=== PATIENT | female | born 1960 | race Caucasian/White ===

== ENCOUNTER 2016-05-21 17:04 | Emergency (ER) | payer OTHER ==
[~2016-05-21] VITALS: Ht 162.6 cm; Wt 76.0 kg
[~2016-05-21 17:04] MED LIST: CYMB60CA PO; DILA8TAB4 PO; FENT75DI T-DERMAL; FURO1TAB62 PO; NEUR800T PO; NEXI20CA PO; PRAV20TA2 PO; TRAZ300T2 PO; [UNRECOGNIZED DRUG - CODE] IMPLANPUMP
[2016-05-21 17:14] VITALS: BP 171/105; PULSE 88; RESP 18; TEMP 97.7; O2SAT 100
[2016-05-21] MEDS ORDERED: ONDANSETRON HCL 4 MG/2 ML VIAL IVP ONE (17:15)
[2016-05-21] MEDS ORDERED: SODIUM CHLOR 0.9% 1000 ML INJ 1,000 ML IV SCH (17:15)
--- NOTE | 2016-05-21 17:21 | PD ---
HPI Chief Complaint: Abdominal Pain Time Seen by Provider: 17:10 Travel History International Travel<30 days: No Contact w/Intl Traveler<30days: No Traveled to known affect area: No History of Present Illness HPI 55yo F with PMH of chronic back pain on fentanyl pump for 7 years presents to the ED with c/o abdominal pain for 2 days. States the pain is left sided where her fentanyl pump is. She had her pump readjusted [address] Kyle Jasso from [place]. +NBNB vomiting. Denies any fever, chest pain, sob, diarrhea, or urinary complaints. PFSH Past Medical History Hx Anticoagulant Therapy: Yes (BABY ASA DAILY) Arthritis: Yes Asthma: No Blood Disorders: No Anxiety: Yes Depression: No Heart Rhythm Problems: Yes (PERICARDITIS 1989,TACHYCARDIA) Cancer: No Cardiovascular Problems: Yes (PERICARDITIS ) High Cholesterol: No Chemotherapy: No Chest Pain: No Congestive Heart Failure: No COPD: No Cerebrovascular Accident: No Diabetes: No Diminished Hearing: No Endocrine: No Gastrointestinal Disorders: Yes (GERD, ULCER HX) GERD: No Glaucoma: Yes Genitourinary: No Headaches: No Hepatitis: No Hiatal Hernia: No Heparin Induced Thrombocytopen: No Hypertension: No Immune Disorder: No Implanted Vascular Access Dvce: No Musculoskeletal: Yes (S/P TRAUMA--ARTHRITIS, BACK/NECK PAIN, AVN JOINTS) Neurologic: Yes (MIGRAINES (NERVE SEVERED ELECTIVELY)) Psychiatric: Yes (CLAUSTRAPHOBIA) Reproductive: No Respiratory: No Immunizations Current: Yes Migraines: Yes Thyroid Disease: No Ulcer: Yes ?: Not Menopausal: Yes : 0 Ovarian Cysts: Yes Past Surgical History Abdominal Surgery: Yes (APPY) AICD: No Appendectomy: Yes Body Medical Devices: SPINAL HARDWARE, PAIN PUMP Cholecystectomy: Yes Ear Surgery: No Endocrine Surgery: No Eye Surgery: No Genitourinary Surgery: No Gynecologic Surgery: Yes (HYSTERECTOMY) Hysterectomy: Yes Joint Replacement: Yes (HIP/KNEES) Neurologic Surgery: Yes (LUMBAR& CERVICAL FUSIONS (X2 EACH), LEFT OCCIP. NEVER CLIP) Oral Surgery: Yes Thoracic Surgery: Yes Tonsillectomy: Yes Other Surgery: Yes (TRAUMA REPAIRS 1978) Social History Alcohol Use: No Tobacco Use: No Substance Use: No Allergies-Medications (Allergen,Severity, Reaction): Coded Allergies: Kelly (Verified Allergy, Severe, ALLERGY TO MOBIC(MELOXICAM) = PALPITATIONS, 05/21/16) Meloxicam (Unverified Allergy, Severe, RASH, 05/21/16) Robaxin (Verified Allergy, Severe, Rash, 05/21/16) Soma (Verified Allergy, Mild, Rash, 05/21/16) Reported Meds & Prescriptions Reported Meds & Active Scripts Active Zofran Odt (Ondansetron Odt) 4 Mg Tab 4 Mg SL Q6HR PRN Flomax (Tamsulosin HCl) 0.4 Mg Cap 0.4 Mg PO HS Reported Fentanyl Citrate/R... 0.1-0.125-0.9 mg/50Ml-% (Fentanyl Citrate-Ropivacaine H) 1 Inj Inj 1 Units IMPLANPUMP 6X DAILY PRN PRN Fentanyl Patch 72 HR (Fentanyl) 75 Mcg/Hr Patch 75 Mcg T-DERMAL Q72H Remove old patch when new one placed. Nexium (Esomeprazole DR) 20 Mg Capdr 20 Mg PO DAILY Lasix (Furosemide) 20 Mg Tab 10 Mg PO BID PRN Neurontin (Gabapentin) 800 Mg Tab 800 Mg PO TID Pravastatin 20 Mg Tab 20 Mg PO DAILY Trazodone (Trazodone HCl) 300 Mg Tab 400 Mg PO HS Dilaudid (Hydromorphone HCl) 8 Mg Tab 8 Mg PO Q6H PRN Review of Systems Except as stated in HPI: all other systems reviewed are Neg Physical Exam Narrative GENERAL: 55yo F in mild distress. SKIN: Warm and dry. HEAD: Atraumatic. Normocephalic. EYES: Pupils equal and round. No scleral icterus. No injection or drainage. ENT: No nasal bleeding or discharge. Mucous membranes pink and moist. NECK: Trachea midline. No JVD. CARDIOVASCULAR: Regular rate and rhythm. No murmur appreciated. RESPIRATORY: No accessory muscle use. Clear to auscultation. Breath sounds equal bilaterally. GASTROINTESTINAL: Abdomen soft, mild ttp LLQ around fentanyl pump. Surgical scar is well healed with no signs of erythema, pus or infection. MUSCULOSKELETAL: No obvious deformities. No clubbing. No cyanosis. No edema. NEUROLOGICAL: Awake and alert. No obvious cranial nerve deficits. Motor grossly within normal limits. Normal speech. PSYCHIATRIC: Appropriate mood and affect; insight and judgment normal. Data Data Last Documented VS Vital Signs Date Time Temp Pulse Resp B/P Pulse Ox O2 Delivery O2 Flow Rate FiO2 05/21/16 22:00 90 16 149/93 98 Room Air 05/21/16 17:14 97.7 Orders Complete Blood Count With Diff (05/21/16 17:15) Comprehensive Metabolic Panel (05/21/16 17:15) Lipase (05/21/16 17:15) Prothrombin Time / Inr (Pt) (05/21/16 17:15) Act Partial Throm Time (Ptt) (05/21/16 17:15) Urinalysis - C+S If Indicated (05/21/16 17:15) Ct Abd/Pel W Iv Contrast(Rout) (05/21/16 17:15) Iv Access Insert/Monitor (05/21/16 17:15) Ecg Monitoring (05/21/16 17:15) Oximetry (05/21/16 17:15) Ondansetron Inj (Zofran Inj) (05/21/16 17:15) Sodium Chlor 0.9% 1000 Ml Inj (Ns 1000 M (05/21/16 17:15) Sodium Chloride 0.9% Flush (Ns Flush) (05/21/16 17:15) Hydromorphone Pf Inj (Dilaudid Pf Inj) (05/21/16 17:45) Potassium Chloride (Kcl) (05/21/16 18:45) Hydromorphone Pf Inj (Dilaudid Pf Inj) (05/21/16 19:00) Hydromorphone Pf Inj (Dilaudid Pf Inj) (05/21/16 20:00) Ondansetron Inj (Zofran Inj) (05/21/16 20:00) Tamsulosin (Flomax) (05/21/16 20:15) Iohexol 350 Inj (Omnipaque 350 Inj) (05/21/16 19:00) Labs Laboratory Tests Test 05/21/16 05/21/16 05/21/16 17:25 18:35 20:45 White Blood Count 10.1 TH/MM3 Red Blood Count 4.36 MIL/MM3 Hemoglobin 12.8 GM/DL Hematocrit 38.5 % Mean Corpuscular Volume 88.3 FL Mean Corpuscular Hemoglobin 29.3 PG Mean Corpuscular Hemoglobin 33.2 % Concent Red Cell Distribution Width 13.3 % Platelet Count 464 TH/MM3 Mean Platelet Volume 6.7 FL Neutrophils (%) (Auto) 65.9 % Lymphocytes (%) (Auto) 25.8 % Monocytes (%) (Auto) 7.1 % Eosinophils (%) (Auto) 0.7 % Basophils (%) (Auto) 0.5 % Neutrophils # (Auto) 6.6 TH/MM3 Lymphocytes # (Auto) 2.6 TH/MM3 Monocytes # (Auto) 0.7 TH/MM3 Eosinophils # (Auto) 0.1 TH/MM3 Basophils # (Auto) 0.1 TH/MM3 CBC Comment DIFF FINAL Differential Comment Sodium Level 142 MEQ/L Potassium Level 3.3 MEQ/L Chloride Level 106 MEQ/L Carbon Dioxide Level 24.0 MEQ/L Anion Gap 12 MEQ/L Blood Urea Nitrogen 14 MG/DL Creatinine 0.80 MG/DL Estimat Glomerular Filtration 74 ML/MIN Rate Random Glucose 130 MG/DL Calcium Level 9.1 MG/DL Total Bilirubin 0.3 MG/DL Aspartate Amino Transf 13 U/L (AST/SGOT) Alanine Aminotransferase 14 U/L (ALT/SGPT) Alkaline Phosphatase 95 U/L Total Protein 7.9 GM/DL Albumin 4.1 GM/DL Lipase 73 U/L Urine Collection Type CLEAN CATCH Urine Color YELLOW Urine Turbidity SLIGHT Urine pH 5.5 Urine Specific [place] 1.023 Urine Protein TRACE mg/dL Urine Glucose (UA) NEG mg/dL Urine Ketones 15 mg/dL Urine Occult Blood LARGE Urine Nitrite NEG Urine Bilirubin NEG Urine Leukocyte Esterase NEG Urine RBC 25-49 /hpf Urine WBC 0-2 /hpf Urine Squamous Epithelial 0-5 /hpf Cells Urine Mucus FEW /lpf Microscopic Urinalysis Comment CULT NOT INDICATED Prothrombin Time 10.9 SEC Prothromb Time International 1.0 RATIO Ratio Activated Partial 25.0 SEC Thromboplast Time MDM Medical Decision Making Medical Screen Exam Complete: Yes Emergency Medical Condition: Yes Differential Diagnosis Abscess vs. colitis vs. obstruction vs. nephrolithiasis vs. pyelonephritis vs. malingering Narrative Course 55yo F with chronic back pain here with abdominal pain radiating to left back. Associated with vomiting. Discussed with pain management physician Dr. Jasso [phone] who states that she will need more IV narcotic such as dilaudid since she has a high tolerance. Agreed with the CT scan. Pt given zofran and no longer nauseous. Pt gave herself a push of fentanyl and felt better. I reevaluated her and her pain is starting to come so dilaudid 1mg IV given. Pt states she can only give herself a dose of fentanyl every 3 hours. Labs reviewed, no leukocytosis. K: 3.3, replaced orally with 40mEq KCl. UA and CTa/ p pending. Will sign out to next team to follow up and disposition accordingly. Scripts Ondansetron Odt (Zofran Odt)4 Mg Tab4 Mg SL Q6HR PRN (Nausea/Vomiting) #10 TAB Ref 0 Prov:Payton Amor MD 05/21/16 Tamsulosin (Flomax)0.4 Mg Cap0.4 Mg PO HS #6 CAP Ref 0 Prov:Payton Amor MD 05/21/16 Dasia Kaplan DO May 21, 2016 17:21
[2016-05-21] MEDS: SODIUM CHLORIDE 0.9% FLUSH 5 ML FLUSH IVF PRN ×3 (17:29→20:29)
[2016-05-21 17:34] LABS: AUTOMATED NEUTROPHIL # 6.6 TH/MM3 (1.8-7.7); BASOPHIL # 0.1 TH/MM3 (0-0.2); BASOPHIL % 0.5 % (0.0-2.0); EOSINOPHIL # 0.1 TH/MM3 (0-0.4); EOSINOPHIL % 0.7 % (0.0-4.0); HEMATOCRIT 38.5 % (35.0-46.0); LYMPH % 25.8 % (9.0-44.0); LYMPHOCYTE # 2.6 TH/MM3 (1.0-4.8); MEAN CELL VOLUME 88.3 FL (80.0-100.0); MEAN CORPUSCULAR HEMOGLOBIN 29.3 PG (27.0-34.0); MEAN CORPUSCULAR HGB CONC 33.2 % (32.0-36.0); MONO % 7.1 % (0.0-8.0); NEUT % 65.9 % (16.0-70.0); PLATELET COUNT 464 TH/MM3 (150-450); RED BLOOD COUNT 4.36 MIL/MM3 (4.00-5.30); RED CELL DISTRIBUTION WIDTH 13.3 % (11.6-17.2); WHITE BLOOD COUNT 10.1 TH/MM3 (4.0-11.0)
[2016-05-21 17:43] LABS: HEMO FLAGS DIFF FINAL
[2016-05-21 17:44] LABS: CHLORIDE 106 MEQ/L (98-107); POTASSIUM 3.3 MEQ/L (3.5-5.1); SODIUM (NA) 142 MEQ/L (136-145)
[2016-05-21] MEDS ORDERED: HYDROmorphone HCL PF 1 MG/ML VIAL IV PUSH ONE ×3 (17:45→20:00)
[2016-05-21 17:48] LABS: ANION GAP 12 MEQ/L (5-15); BLOOD UREA NITROGEN 14 MG/DL (7-18)
[2016-05-21 17:51] LABS: ALT (GPT) 14 U/L (10-53); AST (GOT) 13 U/L (15-37); GLOMERULAR FILTRATION RATE 74 ML/MIN (>89)
[2016-05-21 17:53] LABS: TOTAL BILIRUBIN ADULT 0.3 MG/DL (0.2-1.0)
[2016-05-21 17:54] LABS: ALKALINE PHOSPHATASE 95 U/L (45-117)
[2016-05-21 17:57] VITALS: O2SAT 96
[2016-05-21] MEDS ORDERED: POTASSIUM CHLORIDE 20 MEQ CONTROLLED RELEASE TAB PO ONE (18:45)
[2016-05-21 18:56] LABS: BLOOD, URINE LARGE (NEG); GLUCOSE,URINE NEG (NEG); KETONE, URINE 15 mg/dL (NEG); NITRITE,URINE NEG (NEG); PH, URINE 5.5 (5.0-8.5)
[2016-05-21] MEDS ORDERED: IOHEXOL 350 MG/ML 10 ML VIAL (for RAD DIAG) IV ONE (19:00)
[2016-05-21 19:11] LABS: METHOD OF COLLECTION CLEAN CATCH; URINE COLOR YELLOW (YELLW/STRAW)
[2016-05-21 19:12] LABS: MUCUS URINE FEW /lpf (OCC); SQUAMOUS EPITHELIAL CELL URINE 0-5 /hpf (0-5); WBC, URINE 0-2 /hpf (0-5)
[2016-05-21 19:13] LABS: COMMENT (UR) CULT NOT INDICATED; CULTURE IF INDICATED CULT NOT INDICATED
[2016-05-21 19:20] VITALS: BP 170/101; PULSE 95; RESP 18; O2SAT 99
--- NOTE | 2016-05-21 19:26 | PD ---
Physical Exam Date Seen by Provider: May 21, 2016 Time Seen by Provider: 19:24 Narrative Accepted in transfer of care from Dr. Kaplan GENERAL: SKIN: Warm and dry. HEAD: Normocephalic. EYES: No scleral icterus. No injection or drainage. NECK: Supple, trachea midline. No JVD or lymphadenopathy. CARDIOVASCULAR: Regular rate and rhythm without murmurs, gallops, or rubs. RESPIRATORY: Breath sounds equal bilaterally. No accessory muscle use. GASTROINTESTINAL: Abdomen soft, non-tender, nondistended. MUSCULOSKELETAL: No cyanosis, or edema. BACK: Nontender without obvious deformity. left CVA tenderness. Data Data Last Documented VS Vital Signs Date Time Temp Pulse Resp B/P Pulse Ox O2 Delivery O2 Flow Rate FiO2 05/21/16 22:00 90 16 149/93 98 Room Air 05/21/16 17:14 97.7 Orders Complete Blood Count With Diff (05/21/16 17:15) Comprehensive Metabolic Panel (05/21/16 17:15) Lipase (05/21/16 17:15) Prothrombin Time / Inr (Pt) (05/21/16 17:15) Act Partial Throm Time (Ptt) (05/21/16 17:15) Urinalysis - C+S If Indicated (05/21/16 17:15) Ct Abd/Pel W Iv Contrast(Rout) (05/21/16 17:15) Iv Access Insert/Monitor (05/21/16 17:15) Ecg Monitoring (05/21/16 17:15) Oximetry (05/21/16 17:15) Ondansetron Inj (Zofran Inj) (05/21/16 17:15) Sodium Chlor 0.9% 1000 Ml Inj (Ns 1000 M (05/21/16 17:15) Sodium Chloride 0.9% Flush (Ns Flush) (05/21/16 17:15) Hydromorphone Pf Inj (Dilaudid Pf Inj) (05/21/16 17:45) Potassium Chloride (Kcl) (05/21/16 18:45) Hydromorphone Pf Inj (Dilaudid Pf Inj) (05/21/16 19:00) Hydromorphone Pf Inj (Dilaudid Pf Inj) (05/21/16 20:00) Ondansetron Inj (Zofran Inj) (05/21/16 20:00) Tamsulosin (Flomax) (05/21/16 20:15) Iohexol 350 Inj (Omnipaque 350 Inj) (05/21/16 19:00) Labs Laboratory Tests Test 05/21/16 05/21/16 05/21/16 17:25 18:35 20:45 White Blood Count 10.1 TH/MM3 Red Blood Count 4.36 MIL/MM3 Hemoglobin 12.8 GM/DL Hematocrit 38.5 % Mean Corpuscular Volume 88.3 FL Mean Corpuscular Hemoglobin 29.3 PG Mean Corpuscular Hemoglobin 33.2 % Concent Red Cell Distribution Width 13.3 % Platelet Count 464 TH/MM3 Mean Platelet Volume 6.7 FL Neutrophils (%) (Auto) 65.9 % Lymphocytes (%) (Auto) 25.8 % Monocytes (%) (Auto) 7.1 % Eosinophils (%) (Auto) 0.7 % Basophils (%) (Auto) 0.5 % Neutrophils # (Auto) 6.6 TH/MM3 Lymphocytes # (Auto) 2.6 TH/MM3 Monocytes # (Auto) 0.7 TH/MM3 Eosinophils # (Auto) 0.1 TH/MM3 Basophils # (Auto) 0.1 TH/MM3 CBC Comment DIFF FINAL Differential Comment Sodium Level 142 MEQ/L Potassium Level 3.3 MEQ/L Chloride Level 106 MEQ/L Carbon Dioxide Level 24.0 MEQ/L Anion Gap 12 MEQ/L Blood Urea Nitrogen 14 MG/DL Creatinine 0.80 MG/DL Estimat Glomerular Filtration 74 ML/MIN Rate Random Glucose 130 MG/DL Calcium Level 9.1 MG/DL Total Bilirubin 0.3 MG/DL Aspartate Amino Transf 13 U/L (AST/SGOT) Alanine Aminotransferase 14 U/L (ALT/SGPT) Alkaline Phosphatase 95 U/L Total Protein 7.9 GM/DL Albumin 4.1 GM/DL Lipase 73 U/L Urine Collection Type CLEAN CATCH Urine Color YELLOW Urine Turbidity SLIGHT Urine pH 5.5 Urine Specific [place] 1.023 Urine Protein TRACE mg/dL Urine Glucose (UA) NEG mg/dL Urine Ketones 15 mg/dL Urine Occult Blood LARGE Urine Nitrite NEG Urine Bilirubin NEG Urine Leukocyte Esterase NEG Urine RBC 25-49 /hpf Urine WBC 0-2 /hpf Urine Squamous Epithelial 0-5 /hpf Cells Urine Mucus FEW /lpf Microscopic Urinalysis Comment CULT NOT INDICATED Prothrombin Time 10.9 SEC Prothromb Time International 1.0 RATIO Ratio Activated Partial 25.0 SEC Thromboplast Time [facility] Medical Record Reviewed: Yes Supervised Visit with SCOTT: No Interpretation(s) CBC with automated differential values grossly in normal range Metabolic panel remarkable for mild hypokalemia that has been replaced with oral potassium reportedly Urinalysis shows blood but no evidence of bacteria and culture is not indicated Differential Diagnosis Accepted in transfer of care from Dr. Kaplan; please refer to her dictation Narrative Course Accepted in transfer of care from Dr. Kaplan for follow-up of pending CT and patient disposition; patient's managing surgeon Dr. Jasso from [place] has been consulted by Dr. Kaplan at [phone]. @ 19:25 patient has returned from CT @10 PM patient feels well pain has essentially resolved and patient is desirous of being discharged to home with noted diagnosis of ureterolithiasis with mild hydronephrosis and hydroureter with obstructive uropathy with her condition follow-up with urologist. No evidence of infection at this time. No antibiotic indicated at this time. Patient will be encouraged to strain urine and return to the emergency for free concerns or change in condition. Diagnosis Primary Impression: Ureterolithiasis Additional Impression: Obstructive uropathy Referrals: Urologist call for appointment Patient Instructions: Narcotic given in the ED, General Instructions Additional Instruction: Increase fluid hydration Follow-up with her primary care physician Follow-up with your surgeon Follow-up with urologist Strain urine Continue current pain medication as presently prescribed Take medication as prescribed as needed for nausea vomiting Take new medication to help with passage of stone Return to the emergency for any concerns or change in condition Take acetaminophen/Tylenol as often as every 4 hours as needed for minor pain or for fever 100.4 use Fahrenheit or greater Med/Other Pt SpecificInfo: Prescription(s) given Scripts Ondansetron Odt (Zofran Odt)4 Mg Tab4 Mg SL Q6HR PRN (Nausea/Vomiting) #10 TAB Ref 0 Prov:Payton Amor MD 05/21/16 Tamsulosin (Flomax)0.4 Mg Cap0.4 Mg PO HS #6 CAP Ref 0 Prov:Payton Amor MD 05/21/16 Disposition: DISCHARGE HOME Condition: Stable Payton Amor MD May 21, 2016 19:26 Payton Amor MD May 21, 2016 19:26
--- NOTE | 2016-05-21 19:54 | RADHPO ---
EXAM DATE/TIME: 05/21/2016 19:00 [facility] COMPARISON: No previous studies available for comparison. INDICATIONS : Left lower quadrant pain for two days. IV CONTRAST: 70 cc Omnipaque 350 (iohexol) IV ORAL CONTRAST: No oral contrast ingested. RADIATION DOSE: 13.23 CTDIvol (mGy) MEDICAL HISTORY : Pancreatitis. Gastroesophageal reflux disease. SURGICAL HISTORY : Appendectomy. Hysterectomy.Fusion, lumbar.Fentonyl pump. ENCOUNTER: Initial ACUITY: 2 days PAIN SCALE: 8/10 LOCATION: Left lower quadrant TECHNIQUE: Volumetric scanning of the abdomen and pelvis was performed. Using automated exposure control and ad justment of the mA and/or kV according to patient size, radiation dose was kept as low as reasonably achievable to obtain optimal diagnostic quality images. FINDINGS: Comparison is July 2015. Since prior exam patient has developed moderate left-sided hydronephrosis. There is extensive streak artifact in the abdomen from implanted infusion pump device in the left low er quadrant and from previous lumbar spine surgery and bilateral hip arthroplasties. Findings likely relate to left-sided obstructive uropathy. There is an approximately 3 mm calcification in the left h emipelvis which could be in the distal left ureter. This area is difficult to visualize due to hip ar throplasties. There are multiple additional nonobstructing calculi in both kidneys. No evidence for o bstructive uropathy on the right. Lung bases are clear. No acute findings in the liver, spleen, adrenals or pancreas. No calcified gall stones. No bowel obstruction. No free air or free fluid. CONCLUSION: 1. Left-sided obstructive uropathy. Calculus is not definitively visualized but there may be a 3 mm c alculus near the left UVJ. Multiple additional bilateral nonobstructing renal calculi present ranging in size from about 1-4 mm. Marbin Aviles MD on May 21, 2016 at 19:46 Board Certified Radiologist. This report was verified electronically.
[2016-05-21] MEDS ORDERED: ONDANSETRON HCL 4 MG/2 ML VIAL IV PUSH ONE (20:00)
[2016-05-21] MEDS ORDERED: TAMSULOSIN HCL 0.4 MG CAP PO ONE (20:15)
[2016-05-21 20:25] VITALS: BP 163/90; PULSE 85; RESP 18; O2SAT 100
[2016-05-21 21:22] LABS: PROTHROMBIN TIME - PATIENT 10.9 SEC (9.8-11.6)
[2016-05-21 22:00] VITALS: BP 149/93; PULSE 90; RESP 16; O2SAT 98
[2016-05-21] MEDS ORDERED: TAMS5CAP PO (22:01)
[2016-05-21] MEDS ORDERED: ZOFR4TAB3 SL (22:01)
== END 2016-05-21 22:20 | disposition home or self-care (01) ==
LOC: PHED 17:04
DX: N13.2 Hydronephrosis with renal and ureteral calculous obstruction (principal); N13.4 Hydroureter; N13.9 Obstructive and reflux uropathy, unspecified; Z79.01 Long term (current) use of anticoagulants; K21.9 Gastro-esophageal reflux disease without esophagitis
CPT/HCPCS: 74177; 80053; 81001; 83690; 85025; 85610; 85730; 96361; 96374; 96375; 99284; J1170; J2405; J7030; Q9967

== ENCOUNTER 2016-10-07 09:54 | Emergency (ER) | payer OTHER ==
[~2016-10-07] VITALS: Ht 160 cm; Wt 74.0 kg
[~2016-10-07 09:54] MED LIST changes: -CYMB60CA PO; +TAMS5CAP PO; +ZOFR4TAB3 SL
[2016-10-07 09:56] VITALS: BP 128/82; PULSE 92; RESP 15; TEMP 98.3; O2SAT 96
[2016-10-07] MEDS ORDERED: [UNRECOGNIZED DRUG - CODE] (10:10)
--- NOTE | 2016-10-07 10:37 | PD ---
HPI Chief Complaint: Hip Injury Time Seen by Provider: 10:14 Travel History International Travel<30 days: No Contact w/Intl Traveler<30days: No Traveled to known affect area: No History of Present Illness HPI 56-year-old female complains of right hip pain. Patient stated that she fell yesterday on the right hip. Patient status post right hip replacement in the past. Patient states the pain is sharp pain localized to right hip. Patient states that she has clicking noise on movement of the right hip since the fall. Patient denies any other injury. On a scale of 1-10 on a scale of 1-10 the pain is an 8. PFSH Past Medical History Hx Anticoagulant Therapy: Yes (BABY ASA DAILY) Arthritis: Yes Asthma: No Blood Disorders: No Anxiety: Yes Depression: No Heart Rhythm Problems: Yes (PERICARDITIS 1989,TACHYCARDIA) Cancer: No Cardiovascular Problems: Yes (PERICARDITIS ) High Cholesterol: Yes Chemotherapy: No Chest Pain: No Congestive Heart Failure: No COPD: No Cerebrovascular Accident: No Diabetes: No Diminished Hearing: No Endocrine: No Gastrointestinal Disorders: Yes (GERD, ULCER HX) GERD: Yes Glaucoma: Yes Genitourinary: No Headaches: No Hepatitis: No Hiatal Hernia: No Heparin Induced Thrombocytopen: No Hypertension: No Immune Disorder: No Implanted Vascular Access Dvce: No Medical other: Yes (FIBROMYALGIA) Musculoskeletal: Yes (S/P TRAUMA--ARTHRITIS, BACK/NECK PAIN, AVN JOINTS) Neurologic: Yes (MIGRAINES (NERVE SEVERED ELECTIVELY)) Psychiatric: Yes (CLAUSTRAPHOBIA) Reproductive: No Respiratory: No Immunizations Current: Yes Migraines: Yes Thyroid Disease: No Ulcer: Yes Influenza Vaccination: Yes ?: Not 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 NEVER CLIP) Oral Surgery: Yes Thoracic Surgery: Yes Tonsillectomy: Yes Other Surgery: Yes (TRAUMA REPAIRS 1978) Family History Family Myocardial Infarction: Yes (father ist at age 30) Social History Alcohol Use: No Tobacco Use: No Substance Use: No Allergies-Medications (Allergen,Severity, Reaction): Coded Allergies: Feldene (Verified Allergy, Severe, ALLERGY TO MOBIC(MELOXICAM) = PALPITATIONS, 10/07/16) Meloxicam (Unverified Allergy, Severe, RASH, 10/07/16) Robaxin (Verified Allergy, Severe, Rash, 10/07/16) Soma (Verified Allergy, Mild, Rash, 10/07/16) Reported Meds & Prescriptions Reported Meds & Active Scripts Active Zofran Odt (Ondansetron Odt) 4 Mg Tab 4 Mg SL Q6HR PRN Reported Kcmdmcis-Rnvby-Mq 20 Mcg-0.25% (Fentanyl/Bupivacaine/Ns/Pf) 250 Ml Plast..bag 0 Nexium (Esomeprazole DR) 20 Mg Capdr 20 Mg PO DAILY Lasix (Furosemide) 20 Mg Tab 10 Mg PO BID PRN Neurontin (Gabapentin) 800 Mg Tab 800 Mg PO TID Pravastatin 20 Mg Tab 40 Mg PO HS Trazodone (Trazodone HCl) 300 Mg Tab 400 Mg PO HS Dilaudid (Hydromorphone HCl) 8 Mg Tab 8 Mg PO Q6H PRN Review of Systems General / Constitutional: No: Fever Eyes: No: Visual changes HENT: No: Headaches Cardiovascular: No: Chest Pain or Discomfort Respiratory: No: Shortness of Breath Gastrointestinal: No: Abdominal Pain Genitourinary: No: Dysuria Musculoskeletal: Positive: Pain Skin: No Rash Neurologic: No: Weakness Psychiatric: No: Depression Endocrine: No: Polydipsia Hematologic/Lymphatic: No: Easy Bruising Physical Exam Narrative GENERAL: Well-nourished, well-developed patient. SKIN: Focused skin assessment warm/dry. HEAD: Normocephalic. EYES: No scleral icterus. No injection or drainage. NECK: Supple, trachea midline. No JVD or lymphadenopathy. CARDIOVASCULAR: Regular rate and rhythm without murmurs, gallops, or rubs. RESPIRATORY: Breath sounds equal bilaterally. No accessory muscle use. GASTROINTESTINAL: Abdomen soft, non-tender, nondistended. MUSCULOSKELETAL: No cyanosis, or edema. BACK: Nontender without obvious deformity. No CVA tenderness. Patient has moderate tenderness on palpation lateral posterior aspect the right hip joint. Full range of motion of the right hip. Sensorimotor function distally intact. Data Data Last Documented VS Vital Signs Date Time Temp Pulse Resp B/P Pulse Ox O2 Delivery O2 Flow Rate FiO2 10/07/16 09:56 98.3 92 15 128/82 96 Orders Hip, Uni(Ap&Lat) W Ap Pelvis (10/07/16 ) MDM Medical Decision Making Medical Screen Exam Complete: Yes Emergency Medical Condition: Yes Differential Diagnosis Differential diagnosis including contusion, fracture, dislocation. Narrative Course 56-year-old female with right hip pain, status post fall. Diagnosis Primary Impression: Contusion of right hip Qualified Code: S70.01XA - Contusion of right hip, initial encounter Patient Instructions: General Instructions Additional Instructions: Continue with pain medication. Follow-up with orthopedist if persistent problem. Return if worse. Med/Other Pt SpecificInfo: No Change to Meds Disposition: 01 DISCHARGE HOME Condition: Stable Mika Caro MD Oct 07, 2016 10:37
--- NOTE | 2016-10-07 10:45 | RADRPT ---
EXAM DATE/TIME: 10/07/2016 10:27 [facility] COMPARISON: CT ABDOMEN & PELVIS W CONTRAST, May 21, 2016, 19:00. INDICATIONS : Fell yesterday, right hip area pain MEDICAL HISTORY : None. SURGICAL HISTORY : Spinal fusions, bilateral hips, knees ENCOUNTER: Initial ACUITY: 2 days PAIN SCORE: 8/10 LOCATION: Right hip FINDINGS: There are bilateral total hip arthroplasties. Posterior lalita and transpedicular screw fixation of the lower lumbar spine noted. No fractures are seen. A generator device overlies the left iliac crest. CONCLUSION: No acute disease. Yemi Sheriff MD on October 07, 2016 at 10:42 Board Certified Radiologist. This report was verified electronically.
== END 2016-10-07 10:51 | disposition home or self-care (01) ==
LOC: PHED 09:54
DX: S70.01XA Contusion of right hip, initial encounter (principal); I31.9 Disease of pericardium, unspecified; F41.9 Anxiety disorder, unspecified; Z79.82 Long term (current) use of aspirin; Z96.641 Presence of right artificial hip joint; W18.30XA Fall on same level, unspecified, initial encounter; Y93.9 Activity, unspecified; Y92.9 Unspecified place or not applicable; Y99.9 Unspecified external cause status
CPT/HCPCS: 73502; 99283

== ENCOUNTER 2017-04-04 21:04 | Emergency (ER) | payer OTHER ==
[~2017-04-04] VITALS: Ht 162.6 cm; Wt 69.6 kg
[~2017-04-04 21:04] MED LIST changes: -FENT75DI T-DERMAL; -TAMS5CAP PO; +[UNRECOGNIZED DRUG - CODE]; -[UNRECOGNIZED DRUG - CODE] IMPLANPUMP
[2017-04-04 21:14] VITALS: BP 107/58; PULSE 95; RESP 16; TEMP 98.5; O2SAT 95
[2017-04-04] MEDS ORDERED: SODIUM CHLOR 0.9% 1000 ML INJ 1,000 ML IV ONE (22:19)
--- NOTE | 2017-04-04 22:28 | PD ---
HPI Chief Complaint: Headache Time Seen by Provider: 22:12 Travel History International Travel<30 days: No Contact w/Intl Traveler<30days: No History of Present Illness HPI Patient is a 56-year-old female who presents to emergency room with complaints of migraine headache. Patient reports that she has history of migraine headaches in the past, reports that she has taken fiorcets in the past for migraine headaches but does not have a script for this anymore. Patient reports that over the past few days, she has had a migraine headache. Patient reports that the headache goes from the back of her neck to the front of her head, reports that her migraine is associated with photophobia with nausea and vomiting. Patient reports that her symptoms are similar to her previous migraines in the past. Patient denies any fever or chills with symptoms. Patient denies thunderclap headache. Patient denies that this is the worst headache of her life. Patient has tried taking [id number] medications for relief of symptoms, patient reports that nothing has helped with her symptoms. Patient denies any fever or chills, no other complaints at this time. PFSH Past Medical History Hx Anticoagulant Therapy: Yes (BABY ASA DAILY) Arthritis: Yes Asthma: No Blood Disorders: No Anxiety: Yes Depression: No Heart Rhythm Problems: Yes (PERICARDITIS 1989,TACHYCARDIA) Cancer: No Cardiovascular Problems: Yes (PERICARDITIS ) High Cholesterol: Yes Chemotherapy: No Chest Pain: No Congestive Heart Failure: No COPD: No Cerebrovascular Accident: No Diabetes: No Diminished Hearing: No Endocrine: No Gastrointestinal Disorders: Yes (GERD, ULCER HX) GERD: Yes Glaucoma: Yes Genitourinary: No Headaches: No Hepatitis: No Hiatal Hernia: No Heparin Induced Thrombocytopen: No Hypertension: No Immune Disorder: No Implanted Vascular Access Dvce: No Musculoskeletal: Yes (S/P TRAUMA--ARTHRITIS, BACK/NECK PAIN, AVN JOINTS) Neurologic: Yes (MIGRAINES (NERVE SEVERED ELECTIVELY)) Psychiatric: Yes (CLAUSTRAPHOBIA) Reproductive: No Respiratory: No Immunizations Current: Yes Migraines: Yes Thyroid Disease: No Ulcer: Yes Menopausal: Yes : 0 Ovarian Cysts: Yes Past Surgical History Abdominal Surgery: Yes (APPY) AICD: No Appendectomy: Yes Body Medical Devices: SPINAL HARDWARE, PAIN PUMP Cholecystectomy: Yes Ear Surgery: No Endocrine Surgery: No Eye Surgery: No Genitourinary Surgery: No Gynecologic Surgery: Yes (HYSTERECTOMY) Hysterectomy: Yes Joint Replacement: Yes (HIP/KNEES) Neurologic Surgery: Yes (LUMBAR& CERVICAL FUSIONS (X2 EACH), LEFT OCCIP. NEVER CLIP) Oral Surgery: Yes Thoracic Surgery: Yes Tonsillectomy: Yes Other Surgery: Yes (TRAUMA REPAIRS 1978) Social History Alcohol Use: No Tobacco Use: No Substance Use: No Allergies-Medications (Allergen,Severity, Reaction): Coded Allergies: meloxicam (Unverified Allergy, Severe, RASH, 04/04/17) methocarbamol (Unverified Allergy, Severe, Rash, 04/04/17) piroxicam (Unverified Allergy, Severe, ALLERGY TO MOBIC(MELOXICAM) = PALPITATIONS, 04/04/17) carisoprodol (Unverified Allergy, Mild, Rash, 04/04/17) Reported Meds & Prescriptions Reported Meds & Active Scripts Active Zofran Odt (Ondansetron Odt) 4 Mg Tab 4 Mg SL Q6HR PRN Reported Nexium (Esomeprazole DR) 20 Mg Capdr 20 Mg PO DAILY Lasix (Furosemide) 20 Mg Tab 10 Mg PO BID PRN Neurontin (Gabapentin) 800 Mg Tab 800 Mg PO TID Pravastatin 20 Mg Tab 40 Mg PO HS Trazodone (Trazodone HCl) 300 Mg Tab 400 Mg PO HS Dilaudid (Hydromorphone HCl) 8 Mg Tab 8 Mg PO Q6H PRN Review of Systems General / Constitutional: No: Fever, Chills Eyes: Positive: Photophobia, No: Visual changes HENT: Positive: Headaches Cardiovascular: No: Chest Pain or Discomfort Respiratory: No: Shortness of Breath Gastrointestinal: Positive: Nausea, Vomiting, No: Abdominal Pain Genitourinary: No: Dysuria Musculoskeletal: No: Pain Skin: No Rash Neurologic: Positive: Headache, No: Weakness Psychiatric: No: Depression Endocrine: No: Polydipsia Hematologic/Lymphatic: No: Easy Bruising Physical Exam Narrative GENERAL: Moderate distress SKIN: Focused skin assessment warm/dry. HEAD: Atraumatic. Normocephalic. EYES: Pupils equal and round. No scleral icterus. No injection or drainage. ENT: No nasal bleeding or discharge. Mucous membranes pink and moist. NECK: Trachea midline. No JVD. No meningismus, negative Kernig and Babinski sign CARDIOVASCULAR: Regular rate and rhythm. No murmur appreciated. RESPIRATORY: No accessory muscle use. Clear to auscultation. Breath sounds equal bilaterally. GASTROINTESTINAL: Abdomen soft, non-tender, nondistended. Hepatic and splenic margins not palpable. MUSCULOSKELETAL: No obvious deformities. No clubbing. No cyanosis. No edema. NEUROLOGICAL: Awake and alert. No obvious cranial nerve deficits. Motor grossly within normal limits. Normal speech. CN 2- 12 grossly intact with no neurological deficits. PSYCHIATRIC: Appropriate mood and affect; insight and judgment normal. Data Data Last Documented VS Vital Signs Date Time Temp Pulse Resp B/P (MAP) Pulse Ox O2 Delivery O2 Flow Rate FiO2 04/04/17 23:38 90 18 129/80 (96) 96 Room Air 04/04/17 21:14 98.5 Orders Orders Complete Blood Count With Diff (04/04/17 22:19) Basic Metabolic Panel (Bmp) (04/04/17 22:19) Ecg Monitoring (04/04/17 22:19) Iv Access Insert/Monitor (04/04/17 22:19) Oximetry (04/04/17 22:19) Sodium Chloride 0.9% Flush (Ns Flush) (04/04/17 22:30) Metoclopramide Inj (Reglan Inj) (04/04/17 22:30) Sodium Chlor 0.9% 1000 Ml Inj (Ns 1000 M (04/04/17 22:19) Dexamethasone Inj (Decadron Inj) (04/04/17 22:30) Diphenhydramine Inj (Benadryl Inj) (04/04/17 22:30) Ketorolac Inj (Toradol Inj) (04/04/17 22:30) Labs Laboratory Tests Test 04/04/17 23:00 White Blood Count 6.9 TH/MM3 Red Blood Count 4.14 MIL/MM3 Hemoglobin 11.8 GM/DL Hematocrit 35.9 % Mean Corpuscular Volume 86.6 FL Mean Corpuscular Hemoglobin 28.4 PG Mean Corpuscular Hemoglobin Concent 32.8 % Red Cell Distribution Width 12.6 % Platelet Count 359 TH/MM3 Mean Platelet Volume 6.5 FL Neutrophils (%) (Auto) 67.8 % Lymphocytes (%) (Auto) 23.4 % Monocytes (%) (Auto) 8.3 % Eosinophils (%) (Auto) 0.2 % Basophils (%) (Auto) 0.3 % Neutrophils # (Auto) 4.7 TH/MM3 Lymphocytes # (Auto) 1.6 TH/MM3 Monocytes # (Auto) 0.6 TH/MM3 Eosinophils # (Auto) 0.0 TH/MM3 Basophils # (Auto) 0.0 TH/MM3 CBC Comment DIFF FINAL Differential Comment Blood Urea Nitrogen 12 MG/DL Creatinine 0.54 MG/DL Random Glucose 120 MG/DL Calcium Level 9.1 MG/DL Sodium Level 138 MEQ/L Potassium Level 4.0 MEQ/L Chloride Level 102 MEQ/L Carbon Dioxide Level 29.9 MEQ/L Anion Gap 6 MEQ/L Estimat Glomerular Filtration Rate 116 ML/MIN MDM Medical Decision Making Medical Screen Exam Complete: Yes Emergency Medical Condition: Yes Medical Record Reviewed: Yes Interpretation(s) Vital Signs Date Time Temp Pulse Resp B/P (MAP) Pulse Ox O2 Delivery O2 Flow Rate FiO2 04/04/17 21:14 98.5 95 16 107/58 (74) 95 Differential Diagnosis migraine headache, cephalgia Narrative Course Patient is a 56 year old female who presents to ER with complaints of typical migraine headache. Symptoms have been ongoing for the past few days. Reports that she has run out of her fiorcet which she usually takes for her migraine headaches. Reports photophobia with nausea and vomiting with her symptoms. Overall, patient has a benign physical exam with no neurological deficits. Patient with no meningismus signs, negative Kernig's or Babinski sign During the course of the patients emergency department visit, the patients history, examination, and differential diagnosis were reviewed with the patient. The patient was placed on a db2 systems programmer with oximetry and frequent blood pressure monitoring. The patient had an IV access obtained and blood work sent for analysis. The patient was initially provided IV fluids, IV dexamethasone, IV reglan as well as IV Benadryl The patients laboratory studies were reviewed and remarkable for: CBC & BMP Diagram 04/04/17 23:00 Calcium Level 9.1 Patient reevaluated, patient with complete resolution of symptoms at this time. Patient does have a neurologist that she follows up with, she will follow-up with her neurologist for her migraine headaches. Signs and symptoms of when to return to ER was reviewed with patient in detail. She will return to ER as needed. Diagnosis Primary Impression: Migraine Qualified Codes: G43.909 - Migraine, unspecified, not intractable, without status migrainosus Patient Instructions: General Instructions Additional Instructions: Please follow up with your neurologist in 1 week Please follow up with your primary care doctor in 2-3 days Return to the ER if symptoms worsen or progress Return to the ER as needed Disposition: 01 DISCHARGE HOME Condition: Stable Maxine Patricia DO Apr 04, 2017 22:28
[2017-04-04] MEDS ORDERED: METOCLOPRAMIDE HCL 10 MG/2 ML VIAL IVP ONE (22:30)
[2017-04-04] MEDS ORDERED: diphenhydrAMINE HCL 50 MG/ML VIAL IV PUSH ONE (22:30)
[2017-04-04] MEDS ORDERED: SODIUM CHLORIDE 0.9% FLUSH 10 ML FLUSH IVF PRN (22:30)
[2017-04-04] MEDS ORDERED: KETOROLAC TROMETHAMINE 30 MG/ML (IVP) VIAL IV PUSH ONE (22:30)
[2017-04-04] MEDS ORDERED: DEXAMETHASONE SOD PHOS 20 MG/5 ML VIAL IV PUSH ONE (22:30)
[2017-04-04 22:51] VITALS: RESP 18; O2SAT 96
[2017-04-04 23:14] LABS: AUTOMATED NEUTROPHIL # 4.7 TH/MM3 (1.8-7.7); BASOPHIL % 0.3 % (0.0-2.0); EOSINOPHIL % 0.2 % (0.0-4.0); HEMATOCRIT 35.9 % (35.0-46.0); HEMOGLOBIN 11.8 GM/DL (11.6-15.3); LYMPH % 23.4 % (9.0-44.0); LYMPHOCYTE # 1.6 TH/MM3 (1.0-4.8); MEAN CELL VOLUME 86.6 FL (80.0-100.0); MEAN CORPUSCULAR HEMOGLOBIN 28.4 PG (27.0-34.0); MEAN CORPUSCULAR HGB CONC 32.8 % (32.0-36.0); MEAN PLATELET VOLUME 6.5 FL (7.0-11.0); MONO % 8.3 % (0.0-8.0); MONOCYTE # 0.6 TH/MM3 (0-0.9); NEUT % 67.8 % (16.0-70.0); PLATELET COUNT 359 TH/MM3 (150-450); RED BLOOD COUNT 4.14 MIL/MM3 (4.00-5.30); RED CELL DISTRIBUTION WIDTH 12.6 % (11.6-17.2); WHITE BLOOD COUNT 6.9 TH/MM3 (4.0-11.0)
[2017-04-04 23:24] LABS: CALCIUM 9.1 MG/DL (8.5-10.1)
[2017-04-04 23:25] LABS: BICARBONATE 29.9 MEQ/L (21.0-32.0)
[2017-04-04 23:28] LABS: CREATININE 0.54 MG/DL (0.50-1.00)
[2017-04-04 23:38] VITALS: BP 129/80; PULSE 90; RESP 18; O2SAT 96
== END 2017-04-05 00:06 | disposition home or self-care (01) ==
LOC: PHED 21:04
DX: G43.909 Migraine, unspecified, not intractable, without status migrainosus (principal); R11.2 Nausea with vomiting, unspecified; M19.90 Unspecified osteoarthritis, unspecified site; F41.9 Anxiety disorder, unspecified; E78.00 Pure hypercholesterolemia, unspecified; K21.9 Gastro-esophageal reflux disease without esophagitis; H40.9 Unspecified glaucoma
CPT/HCPCS: 80048; 85025; 96361; 96374; 96375; 99284; J1100; J1200; J1885; J2765; J7030

== ENCOUNTER 2017-04-27 01:31 | Emergency (ER) | payer OTHER ==
[~2017-04-27] VITALS: Ht 160 cm; Wt 69.9 kg
[~2017-04-27 01:31] MED LIST changes: -[UNRECOGNIZED DRUG - CODE]
[2017-04-27 01:32] VITALS: BP 121/65; PULSE 133; RESP 20; TEMP 97.3; O2SAT 97
[2017-04-27] MEDS ORDERED: PCA PUMP (01:57)
--- NOTE | 2017-04-27 02:26 | PD ---
HPI Chief Complaint: Pain: Acute or Chronic Time Seen by Provider: 02:07 Travel History International Travel<30 days: No Contact w/Intl Traveler<30days: No Traveled to known affect area: No History of Present Illness HPI The patient is a 56-year-old female that has a history of chronic back pain. She takes fentanyl by way of an intra incisional pump that delivers the fentanyl to the lumbar spine. She has an old incision on that area. Her pain management physician recently increased the amount of fentanyl. There is a 33 hour lock out. Every time they change her formulation on the pump. She complains of low back pain shooting down to the legs and has severe pain. She had been on oral Dilaudid in the past. She suggest an IM shot of 4 mg of Dilaudid to help her get through this 33 hour period. PFSH Past Medical History Hx Anticoagulant Therapy: Yes (BABY ASA DAILY) Arthritis: Yes Asthma: No Autoimmune Disease: No Blood Disorders: No Anxiety: Yes Depression: No Heart Rhythm Problems: Yes (PERICARDITIS 1989,TACHYCARDIA) Cancer: No Cardiovascular Problems: Yes (PERICARDITIS ) High Cholesterol: Yes Chemotherapy: No Chest Pain: No Congestive Heart Failure: No COPD: No Cerebrovascular Accident: No Diabetes: No Diminished Hearing: No Endocrine: No Gastrointestinal Disorders: Yes (GERD, ULCER HX) GERD: Yes Glaucoma: Yes Genitourinary: No Headaches: No Hepatitis: No Hiatal Hernia: No Heparin Induced Thrombocytopen: No Hypertension: No Immune Disorder: No Implanted Vascular Access Dvce: No Kidney Stones: No Medical other: Yes (FIBROMYALGIA) Musculoskeletal: Yes (S/P TRAUMA--ARTHRITIS, BACK/NECK PAIN, AVN JOINTS) Neurologic: Yes (MIGRAINES (NERVE SEVERED ELECTIVELY)) Psychiatric: Yes (CLAUSTRAPHOBIA) Reproductive: No Respiratory: No Immunizations Current: Yes Migraines: Yes Myocardial Infarction: No Radiation Therapy: No Renal Failure: No Seizures: No Sickle Cell Disease: Yes Sleep Apnea: No Thyroid Disease: No Ulcer: Yes Tetanus Vaccination: Unknown Influenza Vaccination: Yes ?: Not Menopausal: Yes : 0 Ovarian Cysts: Yes Past Surgical History Abdominal Surgery: Yes (APPY) AICD: No Appendectomy: Yes Arteriovenous Shunt: Yes Body Medical Devices: SPINAL HARDWARE, PAIN PUMP Cholecystectomy: Yes Ear Surgery: No Endocrine Surgery: No Eye Surgery: No Genitourinary Surgery: No Gynecologic Surgery: Yes (HYSTERECTOMY) Hysterectomy: Yes (Partial) Insulin Pump: No Joint Replacement: Yes (BILAT HIP/KNEES) Neurologic Surgery: Yes (LUMBAR& CERVICAL FUSIONS (X2 EACH), LEFT OCCIP. NERVE CLIP) Oral Surgery: Yes Pacemaker: No Thoracic Surgery: Yes Tonsillectomy: Yes Other Surgery: Yes (TRAUMA REPAIRS 1978) Family History Family Myocardial Infarction: Yes (father ist at age 30) Social History Alcohol Use: No Tobacco Use: No Substance Use: No Allergies-Medications (Allergen,Severity, Reaction): Coded Allergies: meloxicam (Unverified Allergy, Severe, RASH, 04/27/17) methocarbamol (Unverified Allergy, Severe, Rash, 04/27/17) piroxicam (Unverified Allergy, Severe, ALLERGY TO MOBIC(MELOXICAM) = PALPITATIONS, 04/27/17) carisoprodol (Unverified Allergy, Mild, Rash, 04/27/17) Reported Meds & Prescriptions Reported Meds & Active Scripts Active Zofran Odt (Ondansetron Odt) 4 Mg Tab 4 Mg SL Q6HR PRN Reported [[employer] Pump] Nexium (Esomeprazole DR) 20 Mg Capdr 20 Mg PO DAILY Lasix (Furosemide) 20 Mg Tab 10 Mg PO BID PRN Neurontin (Gabapentin) 800 Mg Tab 800 Mg PO TID Pravastatin 20 Mg Tab 40 Mg PO HS Trazodone (Trazodone HCl) 300 Mg Tab 400 Mg PO HS Review of Systems Except as stated in HPI: all other systems reviewed are Neg Physical Exam Narrative GENERAL: Well-nourished, well-developed patient in moderate apparent distress with her lumbar pain that shoots down both of her legs. Her vital signs show heart rate of 133 but are otherwise normal. SKIN: Focused skin assessment warm/dry. HEAD: Normocephalic. EYES: No scleral icterus. No injection or drainage. NECK: Supple, trachea midline. No JVD or lymphadenopathy. CARDIOVASCULAR: Regular rate and rhythm without murmurs, gallops, or rubs. RESPIRATORY: Breath sounds equal bilaterally. No accessory muscle use. GASTROINTESTINAL: Abdomen soft, non-tender, nondistended. The patient does have a pump with a catheter bleeding underneath the skin to the lumbar spine. MUSCULOSKELETAL: No cyanosis, or edema. BACK: Nontender without obvious deformity. No CVA tenderness. Data Data Last Documented VS Vital Signs Date Time Temp Pulse Resp B/P (MAP) Pulse Ox O2 Delivery O2 Flow Rate FiO2 04/27/17 01:32 97.3 133 20 121/65 (83) 97 MDM Medical Decision Making Medical Screen Exam Complete: Yes Emergency Medical Condition: Yes Medical Record Reviewed: Yes Differential Diagnosis Narcotic withdrawal, back pain with inadequate pain medication, new onset back pain Narrative Course The patient has chronic back pain with inadequate pain medication. She has used a high doses of narcotics. She'll be given 4 mg of Dilaudid with 25 mg Phenergan both IM. Diagnosis Primary Impression: Acute exacerbation of chronic low back pain Additional Instructions: Follow-up with your pain management physician as soon as possible. take the uber home, you cannot drive on this Dilaudid. Med/Other Pt SpecificInfo: No Change to Meds Disposition: 01 DISCHARGE HOME Condition: Stable Willie Garcias MD Apr 27, 2017 02:26
[2017-04-27] MEDS ORDERED: PROMETHAZINE INJ 25 MG/ML VIAL IM ONE (02:30)
[2017-04-27] MEDS ORDERED: HYDROmorphone HCL PF 4 MG/ML VIAL IM ONE (02:30)
[2017-04-27] MEDS ORDERED: HYDROmorphone HCL PF 2 MG/ML VIAL IM ONE (02:45)
== END 2017-04-27 02:45 | disposition home or self-care (01) ==
LOC: PHED 01:31
DX: M54.5 Low back pain (principal); G89.29 Other chronic pain; Z79.01 Long term (current) use of anticoagulants
CPT/HCPCS: 96372; 99284; J1170; J2550

== ENCOUNTER 2017-05-04 13:39 | Emergency (ER) | payer OTHER ==
[~2017-05-04] VITALS: Ht 160 cm; Wt 69.5 kg
[~2017-05-04 13:39] MED LIST changes: -DILA8TAB4 PO; +PCA PUMP
[2017-05-04 13:42] VITALS: BP 138/65; PULSE 82; RESP 18; TEMP 98; O2SAT 95
[2017-05-04] MEDS ORDERED: SODIUM CHLOR 0.9% 1000 ML INJ 1,000 ML IV ONE ×2 (14:55→15:00)
--- NOTE | 2017-05-04 14:58 | PD ---
HPI Chief Complaint: Headache Time Seen by Provider: 14:49 Travel History International Travel<30 days: No Contact w/Intl Traveler<30days: No Traveled to known affect area: No History of Present Illness HPI This is a 56-year-old female who has a history of migraines who presents to the emergency department with headache that she woke up with this morning, severe, constant, mostly in the back of her head extending into her neck, associated with nausea. She denies any numbness or weakness or difficulty walking or talking. This headache feels similar to headaches she's had in the past. She takes Dilaudid for chronic back pain but it's not helping. She says about a month ago she came in with a similar headache and she was given a migraine cocktail and that helped her tremendously. PFSH Past Medical History Hx Anticoagulant Therapy: Yes (BABY ASA DAILY) Arthritis: Yes Asthma: No Autoimmune Disease: No Blood Disorders: No Anxiety: Yes Depression: No Heart Rhythm Problems: Yes (PERICARDITIS 1989,TACHYCARDIA) Cancer: No Cardiovascular Problems: Yes (PERICARDITIS ) High Cholesterol: Yes Chemotherapy: No Chest Pain: No Congestive Heart Failure: No COPD: No Cerebrovascular Accident: No Diabetes: No Diminished Hearing: No Endocrine: No Gastrointestinal Disorders: Yes (GERD, ULCER HX) GERD: Yes Glaucoma: Yes Genitourinary: No Headaches: No Hepatitis: No Hiatal Hernia: No Heparin Induced Thrombocytopen: No Hypertension: No Immune Disorder: No Implanted Vascular Access Dvce: No Kidney Stones: No Musculoskeletal: Yes (S/P TRAUMA--ARTHRITIS, BACK/NECK PAIN, AVN JOINTS) Neurologic: Yes (MIGRAINES (NERVE SEVERED ELECTIVELY)) Psychiatric: Yes (CLAUSTRAPHOBIA) Reproductive: No Respiratory: No Immunizations Current: Yes Migraines: Yes Myocardial Infarction: No Radiation Therapy: No Renal Failure: No Seizures: No Sickle Cell Disease: Yes Sleep Apnea: No Thyroid Disease: No Ulcer: Yes Menopausal: Yes : 0 Ovarian Cysts: Yes Past Surgical History Abdominal Surgery: Yes (APPY) AICD: No Appendectomy: Yes Arteriovenous Shunt: Yes Body Medical Devices: SPINAL HARDWARE, PAIN PUMP Cholecystectomy: Yes Ear Surgery: No Endocrine Surgery: No Eye Surgery: No Genitourinary Surgery: No Gynecologic Surgery: Yes (HYSTERECTOMY) Hysterectomy: Yes (Partial) Insulin Pump: No Joint Replacement: Yes (BILAT HIP/KNEES) Neurologic Surgery: Yes (LUMBAR& CERVICAL FUSIONS (X2 EACH), LEFT OCCIP. NERVE CLIP) Oral Surgery: Yes Pacemaker: No Thoracic Surgery: Yes Tonsillectomy: Yes Other Surgery: Yes (TRAUMA REPAIRS 1978) Social History Alcohol Use: No Tobacco Use: No Substance Use: No Allergies-Medications (Allergen,Severity, Reaction): Coded Allergies: meloxicam (Unverified Allergy, Severe, RASH, 04/27/17) methocarbamol (Unverified Allergy, Severe, Rash, 04/27/17) piroxicam (Unverified Allergy, Severe, ALLERGY TO MOBIC(MELOXICAM) = PALPITATIONS, 04/27/17) carisoprodol (Unverified Allergy, Mild, Rash, 04/27/17) Reported Meds & Prescriptions Reported Meds & Active Scripts Active Naproxen 375 Mg Tab 375 Mg PO BID PRN Zofran Odt (Ondansetron Odt) 4 Mg Tab 4 Mg SL Q6HR PRN Reported [[employer] Pump] Nexium (Esomeprazole DR) 20 Mg Capdr 20 Mg PO DAILY Lasix (Furosemide) 20 Mg Tab 10 Mg PO BID PRN Neurontin (Gabapentin) 800 Mg Tab 800 Mg PO TID Pravastatin 20 Mg Tab 40 Mg PO HS Trazodone (Trazodone HCl) 300 Mg Tab 400 Mg PO HS Review of Systems Except as stated in HPI: all other systems reviewed are Neg Physical Exam Narrative GENERAL:Well appearing, no acute distress SKIN: Focused skin assessment warm and dry. HEAD: Atraumatic. Normocephalic. EYES: Pupils equal and round. No injection or drainage. ENT: Moist mucous membranes NECK: Trachea midline. CARDIOVASCULAR: Regular rate and rhythm. No murmur appreciated. RESPIRATORY: Clear to auscultation. Breath sounds equal bilaterally. GASTROINTESTINAL: Abdomen soft, non-tender, nondistended. MUSCULOSKELETAL: No obvious deformities. NEUROLOGICAL: Awake and alert. No obvious cranial nerve deficits. No dysarthria or aphasia. No upper or lower extremity drift. No upper extremity ataxia. Visual irvin intact. PSYCHIATRIC: Appropriate mood and affect; insight and judgment normal. Data Data Last Documented VS Vital Signs Date Time Temp Pulse Resp B/P (MAP) Pulse Ox O2 Delivery O2 Flow Rate FiO2 05/04/17 13:42 98.0 82 18 138/65 (89) 95 Orders Orders Ketorolac Inj (Toradol Inj) (05/04/17 15:00) Diphenhydramine Inj (Benadryl Inj) (05/04/17 15:00) Metoclopramide Inj (Reglan Inj) (05/04/17 15:00) Sodium Chlor 0.9% 1000 Ml Inj (Ns 1000 M (05/04/17 14:55) Dexamethasone Inj (Decadron Inj) (05/04/17 15:00) Sodium Chlor 0.9% 1000 Ml Inj (Ns 1000 M (05/04/17 15:00) MDM Medical Decision Making Medical Screen Exam Complete: Yes Emergency Medical Condition: Yes Interpretation(s) Afebrile, no tachycardia, normotensive Differential Diagnosis Migraine headache, tension headache, subarachnoid hemorrhage Narrative Course This is a 56-year-old female who has a history chronic migraines who presents to the emergency department with a headache that feels just like migraines in the past. She was given IV Toradol, Reglan, Benadryl, fluids and dexamethasone. She feels much better. She is normal neurologic exam. I don't think any imaging is necessary given these are symptoms she's had before. Patient will be discharged home. Diagnosis Primary Impression: Migraine Qualified Codes: G43.011 - Migraine without aura, intractable, with status migrainosus Patient Instructions: General Instructions Additional Instructions: If you develop severe worsening headache, persistent vomiting, numbness, weakness, difficulty walking or difficulty talking return to the emergency department immediately. Sometimes in the emergency department we did not identify the cause of headaches. If you continued to have headaches it is very important that you followup with your primary care physician as you may need further testing with an MRI. Med/Other Pt SpecificInfo: Prescription(s) given Scripts Naproxen (Naproxen) 375 Mg Tab 375 MG PO BID Y for PAIN SCALE 4 TO 10, #20 TAB 0 Refills Prov: Erma Campuzano MD 05/04/17 Disposition: 01 DISCHARGE HOME Condition: Stable Erma Campuzano MD May 04, 2017 14:58
[2017-05-04] MEDS ORDERED: DEXAMETHASONE SOD PHOS 4 MG/ML VIAL IV PUSH ONE (15:00)
[2017-05-04] MEDS ORDERED: KETOROLAC TROMETHAMINE 30 MG/ML (IVP) VIAL IVP ONE (15:00)
[2017-05-04] MEDS ORDERED: diphenhydrAMINE HCL 50 MG/ML VIAL IVP ONE (15:00)
[2017-05-04] MEDS ORDERED: METOCLOPRAMIDE HCL 10 MG/2 ML VIAL IVP ONE (15:00)
[2017-05-04] MEDS ORDERED: NAPR-855 PO (15:33)
[2017-05-05] MEDS ORDERED: LEVE250T5 PO (02:19)
[2017-05-05] MEDS ORDERED: DICL75TA PO (02:19)
[2017-05-05] MEDS ORDERED: HYDR8TAB PO (02:19)
[2017-05-05] MEDS ORDERED: MULTTAB67 PO (02:19)
== END 2017-05-04 16:21 | disposition home or self-care (01) ==
LOC: PHED 13:39
DX: G43.011 Migraine without aura, intractable, with status migrainosus (principal); E78.00 Pure hypercholesterolemia, unspecified; D57.1 Sickle-cell disease without crisis; G89.29 Other chronic pain; M19.90 Unspecified osteoarthritis, unspecified site; K21.9 Gastro-esophageal reflux disease without esophagitis; F41.9 Anxiety disorder, unspecified; H40.9 Unspecified glaucoma; Z88.8 Allergy status to other drugs, medicaments and biological substances; Z79.899 Other long term (current) drug therapy
CPT/HCPCS: 96374; 96375; 99283; J1100; J1200; J1885; J2765; J7030

== ENCOUNTER 2017-05-05 01:59 | Observation (INO) | payer OTHER ==
[2017-05-05] VITALS (11 sets, daily range): BP systolic 120–142; BP diastolic 65–80; PULSE 95–135; RESP 17–22; TEMP 98–99.9; O2SAT 91–98
[~2017-05-05] VITALS: Ht 162.6 cm; Wt 69.0 kg
[~2017-05-05 01:59] MED LIST changes: +NAPR-855 PO
[2017-05-05] MEDS ORDERED: SODIUM CHLOR 0.9% 1000 ML INJ 1,000 ML IV ONE ×2 (02:11→03:15)
[2017-05-05] MEDS ORDERED: SODIUM CHLORIDE 0.9% FLUSH 10 ML FLUSH IVF PRN (02:15)
[2017-05-05] MEDS ORDERED: ACTIVATED CHARCOAL LIQUID 25 GM/120 ML BTL PO/NG ONE (02:15)
[2017-05-05] MEDS ORDERED: MULTTAB67 PO (02:19)
[2017-05-05] MEDS ORDERED: DICL75TA PO (02:19)
[2017-05-05] MEDS ORDERED: HYDR8TAB PO (02:19)
[2017-05-05] MEDS ORDERED: LEVE250T5 PO (02:19)
[2017-05-05 02:41] LABS: AUTOMATED NEUTROPHIL # 7.1 TH/MM3 (1.8-7.7); BASOPHIL % 0.2 % (0.0-2.0); HEMATOCRIT 35.7 % (35.0-46.0); HEMOGLOBIN 12.1 GM/DL (11.6-15.3); LYMPH % 7.3 % (9.0-44.0); LYMPHOCYTE # 0.6 TH/MM3 (1.0-4.8); MEAN CELL VOLUME 88.2 FL (80.0-100.0); MEAN CORPUSCULAR HEMOGLOBIN 29.9 PG (27.0-34.0); MEAN CORPUSCULAR HGB CONC 33.9 % (32.0-36.0); MEAN PLATELET VOLUME 6.9 FL (7.0-11.0); MONO % 6.8 % (0.0-8.0); MONOCYTE # 0.6 TH/MM3 (0-0.9); NEUT % 85.7 % (16.0-70.0); PLATELET COUNT 341 TH/MM3 (150-450); RED BLOOD COUNT 4.05 MIL/MM3 (4.00-5.30); WHITE BLOOD COUNT 8.3 TH/MM3 (4.0-11.0)
--- NOTE | 2017-05-05 02:43 | RADRPT ---
EXAM DATE/TIME: 05/05/2017 02:15 [facility] COMPARISON: CHEST SINGLE AP, August 04, 2014, 23:53. INDICATIONS : Syncope. MEDICAL HISTORY : Hypercholesterolemia. Hypotension. Pericardial effusion. SURGICAL HISTORY : Appendectomy. Cholecystectomy.Hysterectomy.Fentanyl pump. Cervical fusion. Lumbar fusion. Bilateral k nee replacements. Bilateral hip replacements. ENCOUNTER: Initial ACUITY: 1 day PAIN SCORE: Non-responsive. LOCATION: Bilateral chest FINDINGS: A single view of the chest demonstrates the lungs to be symmetrically aerated without evidence of mas s, infiltrate or effusion. The cardiomediastinal contours are unremarkable. Surgical hardware is see n in the lumbar spine. CONCLUSION: No acute disease. Keshav Boston MD on May 05, 2017 at 2:40 Board Certified Radiologist. This report was verified electronically.
--- NOTE | 2017-05-05 02:52 | PD ---
HPI Chief Complaint: OD/ Ingestion Time Seen by Provider: 02:07 Travel History International Travel<30 days: No Contact w/Intl Traveler<30days: No Traveled to known affect area: No History of Present Illness HPI 56-year-old female arrives by EMS from home. Altered mental status observed by the significant other review the patient's history of chronic pain with fentanyl Marcaine infusion pump with options for bolus and the patient has Dilaudid at home for as needed breakthrough pain control. Earlier in the day she was seen at the [facility] for headache and received Toradol dexamethasone Benadryl and antiemetic there. She typically has an excellent response to the headache cocktail. Due to altered mental status the patient denies questions here. The offers some history however does not believe she took [id number] meds tonight. The patient went home with a Naprosyn prescription earlier today. PFSH Past Medical History Hx Anticoagulant Therapy: Yes (BABY ASA DAILY) Arthritis: Yes Asthma: No Autoimmune Disease: No Blood Disorders: No Anxiety: Yes Depression: No Heart Rhythm Problems: Yes (PERICARDITIS 1989,TACHYCARDIA) Cancer: No Cardiovascular Problems: Yes (PERICARDITIS ) High Cholesterol: Yes Chemotherapy: No Chest Pain: No Congestive Heart Failure: No COPD: No Cerebrovascular Accident: No Diabetes: No Diminished Hearing: No Endocrine: No Gastrointestinal Disorders: Yes (GERD, ULCER HX) GERD: Yes Glaucoma: Yes Genitourinary: No Headaches: No Hepatitis: No Hiatal Hernia: No Heparin Induced Thrombocytopen: No Hypertension: No Immune Disorder: No Implanted Vascular Access Dvce: No Kidney Stones: No Musculoskeletal: Yes (S/P TRAUMA--ARTHRITIS, BACK/NECK PAIN, AVN JOINTS) Neurologic: Yes (MIGRAINES (NERVE SEVERED ELECTIVELY)) Psychiatric: Yes (CLAUSTRAPHOBIA) Reproductive: No Respiratory: No Immunizations Current: Yes Migraines: Yes Myocardial Infarction: No Radiation Therapy: No Renal Failure: No Seizures: No Sickle Cell Disease: Yes Sleep Apnea: No Thyroid Disease: No Ulcer: Yes Menopausal: Yes : 0 Ovarian Cysts: Yes Past Surgical History Abdominal Surgery: Yes (APPY) AICD: No Appendectomy: Yes Arteriovenous Shunt: Yes Body Medical Devices: SPINAL HARDWARE, PAIN PUMP Cholecystectomy: Yes Ear Surgery: No Endocrine Surgery: No Eye Surgery: No Genitourinary Surgery: No Gynecologic Surgery: Yes (HYSTERECTOMY) Hysterectomy: Yes (Partial) Insulin Pump: No Joint Replacement: Yes (BILAT HIP/KNEES) Neurologic Surgery: Yes (LUMBAR& CERVICAL FUSIONS (X2 EACH), LEFT OCCIP. NERVE CLIP) Oral Surgery: Yes Pacemaker: No Thoracic Surgery: Yes Tonsillectomy: Yes Other Surgery: Yes (TRAUMA REPAIRS 1978) Social History Alcohol Use: No Tobacco Use: No Substance Use: No Allergies-Medications (Allergen,Severity, Reaction): Coded Allergies: meloxicam (Unverified Allergy, Severe, RASH, 04/27/17) methocarbamol (Unverified Allergy, Severe, Rash, 04/27/17) piroxicam (Unverified Allergy, Severe, ALLERGY TO MOBIC(MELOXICAM) = PALPITATIONS, 04/27/17) carisoprodol (Unverified Allergy, Mild, Rash, 04/27/17) Reported Meds & Prescriptions Reported Meds & Active Scripts Active Reported Diclofenac Sodium DR (Diclofenac Sodium) 75 Mg Tabdr 75 Mg PO BID Levetiracetam 250 Mg Tab 250 Mg PO BID Multiple Vitamin 1 Tab 900 Tab PO DAILY Hydromorphone (Hydromorphone HCl) 8 Mg Tab 8 Mg PO Q6H PRN [Hospice Registered Nurse Pump] Nexium (Esomeprazole DR) 20 Mg Capdr 20 Mg PO DAILY Neurontin (Gabapentin) 800 Mg Tab 800 Mg PO TID Pravastatin 20 Mg Tab 40 Mg PO HS Trazodone (Trazodone HCl) 300 Mg Tab 400 Mg PO HS Review of Systems ROS Limitations: Clinical Condition Physical Exam Narrative GENERAL: 56 yo female, GCS 12 (eyes 4, verbal 4, motor 4), moderate distress SKIN: Warm and dry. HEAD: Atraumatic. Normocephalic. EYES: Pupils equal and round. No scleral icterus. No injection or drainage. ENT: No nasal bleeding or discharge. Mucous membranes pink and moist. NECK: Trachea midline. No JVD. CARDIOVASCULAR: Tachycardia. Regular rhythm. RESPIRATORY: No accessory muscle use. Clear to auscultation. Breath sounds equal bilaterally. GASTROINTESTINAL: Abdomen soft, non-tender, nondistended. Hepatic and splenic margins not palpable. MUSCULOSKELETAL: Extremities without clubbing, cyanosis, or edema. No obvious deformities. NEUROLOGICAL: No focal cranial nerve deficit. The patient moves all extremities at times. She cannot offer a meaningful recall the events of the evening. PSYCHIATRIC: Appropriate mood and affect; insight and judgment normal. Data Data Last Documented VS Vital Signs Date Time Temp Pulse Resp B/P (MAP) Pulse Ox O2 Delivery O2 Flow Rate FiO2 05/05/17 02:53 123 22 130/72 (91) 98 Nasal Cannula 2.00 05/05/17 02:25 98.0 Orders Orders Electrocardiogram (05/05/17 02:11) Complete Blood Count With Diff (05/05/17 02:11) Comprehensive Metabolic Panel (05/05/17 02:11) Chest, Single Ap (05/05/17 02:11) Blood Glucose (05/05/17 02:11) Iv Access Insert/Monitor (05/05/17 02:11) Cath For Specimen (05/05/17 02:11) Ecg Monitoring (05/05/17 02:11) Oximetry (05/05/17 02:11) Psych Screen (05/05/17 02:11) Charcoal Activated Liq (Actidose-Aqua Li (05/05/17 02:15) Sodium Chloride 0.9% Flush (Ns Flush) (05/05/17 02:15) Sodium Chlor 0.9% 1000 Ml Inj (Ns 1000 M (05/05/17 02:11) Drug Screen, Random Urine (05/05/17 02:11) Alcohol (Ethanol) (05/05/17 02:11) Salicylates (Aspirin) (05/05/17 02:11) Tylenol (Acetaminophen) (05/05/17 02:11) Ct Brain W/O Iv Contrast(Rout) (05/05/17 02:26) Sodium Chlor 0.9% 1000 Ml Inj (Ns 1000 M (05/05/17 03:15) ^ Straight Catheter (05/05/17 03:29) Urinalysis - C+S If Indicated (05/05/17 03:50) Thyroid Stimulating Hormone (05/05/17 02:15) Admit Order (Ed Use Only) (05/05/17 ) Engineering Psychologist / Telemetry [email or web address] (05/05/17 04:49) Vital Signs (Adult) Q4H (05/05/17 04:49) Diet Npo (05/05/17 Breakfast) Activity Bed Rest (05/05/17 04:49) Labs Laboratory Tests Test 05/05/17 02:15 05/05/17 03:47 05/05/17 04:00 White Blood Count 8.3 TH/MM3 Red Blood Count 4.05 MIL/MM3 Hemoglobin 12.1 GM/DL Hematocrit 35.7 % Mean Corpuscular Volume 88.2 FL Mean Corpuscular Hemoglobin 29.9 PG Mean Corpuscular Hemoglobin Concent 33.9 % Red Cell Distribution Width 14.0 % Platelet Count 341 TH/MM3 Mean Platelet Volume 6.9 FL Neutrophils (%) (Auto) 85.7 % Lymphocytes (%) (Auto) 7.3 % Monocytes (%) (Auto) 6.8 % Eosinophils (%) (Auto) 0.0 % Basophils (%) (Auto) 0.2 % Neutrophils # (Auto) 7.1 TH/MM3 Lymphocytes # (Auto) 0.6 TH/MM3 Monocytes # (Auto) 0.6 TH/MM3 Eosinophils # (Auto) 0.0 TH/MM3 Basophils # (Auto) 0.0 TH/MM3 CBC Comment DIFF FINAL Differential Comment Blood Urea Nitrogen 12 MG/DL Creatinine 0.72 MG/DL Random Glucose 133 MG/DL Total Protein 8.4 GM/DL Albumin 4.1 GM/DL Calcium Level 9.1 MG/DL Alkaline Phosphatase 106 U/L Aspartate Amino Transf (AST/SGOT) 33 U/L Alanine Aminotransferase (ALT/SGPT) 22 U/L Total Bilirubin 0.3 MG/DL Sodium Level 142 MEQ/L Potassium Level 4.8 MEQ/L Chloride Level 108 MEQ/L Carbon Dioxide Level 27.4 MEQ/L Anion Gap 7 MEQ/L Estimat Glomerular Filtration Rate 83 ML/MIN Thyroid Stimulating Hormone 3rd Gen 0.295 uIU/ML Salicylates Level LESS THAN 1.7 MG/DL Acetaminophen Level LESS THAN 2.0 MCG/ML Ethyl Alcohol Level LESS THAN 3 MG/DL Urine Opiates Screen POS Urine Barbiturates Screen NEG Urine Amphetamines Screen NEG Urine Benzodiazepines Screen NEG Urine Cocaine Screen NEG Urine Cannabinoids Screen NEG Urine Color YELLOW Urine Turbidity CLEAR Urine pH 5.5 Urine Specific [place] 1.019 Urine Protein TRACE mg/dL Urine Glucose (UA) NEG mg/dL Urine Ketones NEG mg/dL Urine Occult Blood SMALL Urine Nitrite NEG Urine Bilirubin NEG Urine Urobilinogen LESS THAN 2.0 MG/DL Urine Leukocyte Esterase NEG Urine RBC 45 /hpf Urine WBC 2 /hpf Urine Hyaline Casts 1 /lpf Urine Mucus FEW /lpf Microscopic Urinalysis Comment CATH-CULT NOT IND MDM Medical Decision Making Medical Screen Exam Complete: Yes Emergency Medical Condition: Yes Medical Record Reviewed: Yes Differential Diagnosis Overdose, metabolic disarray, anemia, polysubstance abuse Narrative Course CBC & BMP Diagram 05/05/17 02:15 Total Protein 8.4 H, Albumin 4.1, Calcium Level 9.1, Alkaline Phosphatase 106, Aspartate Amino Transf (AST/SGOT) 33, Alanine Aminotransferase (ALT/SGPT) 22, Total Bilirubin 0.3 UTOX negative apap etoh salicylates negative EKG sinus 123 normal axis/intervals; qrs 96 2L ns pulse 120 mentation mildly improved admission for monitoring, ivf d/w dr parikh Critical Care Narrative Aggregate critical care time was 40 minutes. Time to perform other separately billable procedures was not included in the critical care time. My time did not include minutes spent treating any other patients simultaneously or on activities that did not directly contribute to the patient's treatment. The services I provided to this patient were to treat and/or prevent clinically significant deterioration that could result in: cardiopulmonary arrest I provided critical care services requiring my management, as noted below: Chart data review, documentation time, medication orders and management, vital sign assessments/reviewing monitor data, ordering and reviewing lab tests, ordering and interpreting/reviewing x-rays and diagnostic studies, care of the patient and discussion of the patient with the admitting physicians. Diagnosis Primary Impression: Polypharmacy Additional Impression: Altered mental status Qualified Codes: R41.82 - Altered mental status, unspecified Admitting Information Admitting Physician Requests: Admit Ang Brown MD May 05, 2017 02:52
[2017-05-05 02:57] LABS: ALKALINE PHOSPHATASE 106 U/L (45-117); TOTAL BILIRUBIN ADULT 0.3 MG/DL (0.2-1.0); TOTAL PROTEIN 8.4 GM/DL (6.4-8.2)
[2017-05-05 03:06] LABS: ACETAMINOPHEN LESS THAN 2.0 MCG/ML (10.0-30.0); ALBUMIN 4.1 GM/DL (3.4-5.0); ALT (GPT) 22 U/L (10-53); AST (GOT) 33 U/L (15-37); BICARBONATE 27.4 MEQ/L (21.0-32.0); BLOOD UREA NITROGEN 12 MG/DL (7-18); CALCIUM 9.1 MG/DL (8.5-10.1); CHLORIDE 108 MEQ/L (98-107); CREATININE 0.72 MG/DL (0.50-1.00); GLOMERULAR FILTRATION RATE 83 ML/MIN (>89); GLUCOSE,RANDOM 133 MG/DL (74-106); SODIUM (NA) 142 MEQ/L (136-145)
--- NOTE | 2017-05-05 03:06 | RADRPT ---
EXAM DATE/TIME: 05/05/2017 02:41 [place] COMPARISON: CT BRAIN W/O CONTRAST, February 08, 2016, 14:20. INDICATIONS : Altered mental status. RADIATION DOSE: 56.35 CTDIvol (mGy) MEDICAL HISTORY : Non-responsive. SURGICAL HISTORY : Non-responsive. ENCOUNTER: Initial ACUITY: 1 day PAIN SCALE: 0/10 LOCATION: cranial TECHNIQUE: Multiple contiguous axial images were obtained of the head. Using automated exposure control and adj ustment of the mA and/or kV according to patient size, radiation dose was kept as low as reasonably a chievable to obtain optimal diagnostic quality images. DICOM format image data is available electro nically for review and comparison. FINDINGS: CEREBRUM: The ventricles are normal for age. No evidence of midline shift, mass lesion, hemorrhage or acute in farction. No extra-axial fluid collections are seen. POSTERIOR FOSSA: The cerebellum and brainstem are intact. The 4th ventricle is midline. The cerebellopontine angle i s unremarkable. EXTRACRANIAL: The visualized portion of the orbits is intact. SKULL: The calvaria is intact. No evidence of skull fracture. CONCLUSION: No acute disease. Keshav Boston MD on May 05, 2017 at 3:02 Board Certified Radiologist. This report was verified electronically.
[2017-05-05 04:24] LABS: BILIRUBIN, URINE NEG (NEG); BLOOD, URINE SMALL (NEG); GLUCOSE,URINE NEG (NEG); HYALINE CAST, URINE 1 /lpf (RARE); KETONE, URINE NEG (NEG); MUCUS URINE FEW /lpf (OCC); NITRITE,URINE NEG (NEG); PH, URINE 5.5 (5.0-8.5); URINE COLOR YELLOW (YELLW/STRAW); URINE LEUKOCYTE ESTERASE NEG (NEG)
[2017-05-05] MEDS ORDERED: ONDANSETRON HCL 4 MG/2 ML VIAL IVP PRN (05:00)
[2017-05-05] MEDS ORDERED: SODIUM CHLORIDE 0.9% FLUSH 10 ML FLUSH IV FLUSH PRN (05:00)
[2017-05-05] MEDS ORDERED: LACTULOSE SYRUP 20 GM/30 ML CUP PO PRN (05:00)
[2017-05-05] MEDS ORDERED: BISACODYL 10 MG SUPP RECTAL PRN (05:00)
[2017-05-05] MEDS ORDERED: ACETAMINOPHEN 325 MG TAB PO PRN (05:00)
[2017-05-05] MEDS ORDERED: MAGNESIUM HYDROXIDE SUSP 30 ML CUP PO PRN (05:00)
[2017-05-05] MEDS ORDERED: SENNOSIDES 8.6 MG TAB PO PRN (05:00)
[2017-05-05] MEDS: SODIUM CHLOR 0.9% 1000 ML INJ 1,000 ML IV SCH ×2 (05:19→14:54)
[2017-05-05] MEDS: LORazepam 2 MG/ML VIAL IV PUSH PRN ×4 (05:20→20:51)
--- NOTE | 2017-05-05 05:22 | HHI.HP ---
[facility] Blue Keller MD Admission Diagnosis Polypharmacy; AMS Diagnoses: (1) Encephalopathy Diagnosis: Principal (2) Polypharmacy Diagnosis: Principal (3) Tachycardia Diagnosis: Principal Travel History International Travel<30 Days: No Contact w/Intl Traveler <30 Da: No Traveled to Known Affected Are: No History of Present Illness This is a 56-year-old female with a PMH of Anxiety, Migraine, Chronic Back Pain and GERD who was brought to the ER by EMS for AMS. at bedside providing history, states she was seen at [facility] earlier today for c/o Migraine, was given Toradol, Reglan, Benadryl, Decadron and IVF then d/c'd home. Per , pt took home dose of Dilaudid PO, states he put her in bed and went to work, when he returned he found pt to be significantly agitated, not making sense. No h/o similar symptoms. On arrival, BP 120/66, HR 135, O2 sat 91% on RA, Afebrile. CBC unremarkable. Chemistry essentially unremarkable except for GFR 83. TSH 0.295. UA negative. Urine Drug Screen positive for opiates. Negative for alcohol. CT Abdomen no acute findings. CXR negative. S/p IVF and Activated Charcoal in ER w/ some improvement. Pt more awake/alert, however remains agitated and tachycardic. Review of Systems Except as stated in HPI: all other systems reviewed are Neg ROS: Unable to obtain secondary to encephalopathy. Past Family Social History Past Medical History PMH: Anxiety, Migraine, Chronic Back Pain and GERD Past Surgical History PAST SURGICAL HISTORY: Appendectomy, Spinal Hardware, Pain Pump, Cholecystectomy, Hysterectomy Bilateral Hip Replacements, Bilateral Knee Replacement, Lumbar Fusion, Cervical Fusion, Left Occipital Nerve Clip, Tonsillectomy Allergies: Coded Allergies: meloxicam (Unverified Allergy, Severe, RASH, 04/27/17) methocarbamol (Unverified Allergy, Severe, Rash, 04/27/17) piroxicam (Unverified Allergy, Severe, ALLERGY TO MOBIC(MELOXICAM) = PALPITATIONS, 04/27/17) carisoprodol (Unverified Allergy, Mild, Rash, 04/27/17) Family History PAST FAMILY HISTORY: Reviewed. No h/o DM or CAD Social History PAST SOCIAL HISTORY: Negative for alcohol, tobacco or drugs. Physical Exam Vital Signs Vital Signs Date Time Temp Pulse Resp B/P (MAP) Pulse Ox O2 Delivery O2 Flow Rate FiO2 05/05/17 02:53 123 22 130/72 (91) 98 Nasal Cannula 2.00 05/05/17 02:33 133 22 131/65 (87) 98 Nasal Cannula 05/05/17 02:25 98.0 135 22 120/66 (84) 91 Physical Exam PE: GENERAL: Middle-aged female, agitated/fidgety, answers few questions but easily distracted, hard to re-direct. at bedside. HEENT: PERRLA, EOMI. No scleral icterus or conjunctival pallor. No lid lag or facial droop. CARDIOVASCULAR: Regular rate and rhythm. No obvious murmurs to auscultation. No chest tenderness to palpation. RESPIRATORY: No obvious rhonchi or wheezing. Clear to auscultation. Breath sounds equal bilaterally. GASTROINTESTINAL: Abdomen soft, non-tender, nondistended. BS normal. MUSCULOSKELETAL: Extremities without clubbing, cyanosis, or edema. No obvious deformities. NEUROLOGICAL: Awake, disoriented, confused. No focal neurologic deficits. Moving both upper and lower extremities spontaneously. Laboratory Laboratory Tests Test 05/05/17 02:15 05/05/17 03:47 05/05/17 04:00 White Blood Count 8.3 Red Blood Count 4.05 Hemoglobin 12.1 Hematocrit 35.7 Mean Corpuscular Volume 88.2 Mean Corpuscular Hemoglobin 29.9 Mean Corpuscular Hemoglobin Concent 33.9 Red Cell Distribution Width 14.0 Platelet Count 341 Mean Platelet Volume 6.9 Neutrophils (%) (Auto) 85.7 Lymphocytes (%) (Auto) 7.3 Monocytes (%) (Auto) 6.8 Eosinophils (%) (Auto) 0.0 Basophils (%) (Auto) 0.2 Neutrophils # (Auto) 7.1 Lymphocytes # (Auto) 0.6 Monocytes # (Auto) 0.6 Eosinophils # (Auto) 0.0 Basophils # (Auto) 0.0 CBC Comment DIFF FINAL Differential Comment Blood Urea Nitrogen 12 Creatinine 0.72 Random Glucose 133 Total Protein 8.4 Albumin 4.1 Calcium Level 9.1 Alkaline Phosphatase 106 Aspartate Amino Transf (AST/SGOT) 33 Alanine Aminotransferase (ALT/SGPT) 22 Total Bilirubin 0.3 Sodium Level 142 Potassium Level 4.8 Chloride Level 108 Carbon Dioxide Level 27.4 Anion Gap 7 Estimat Glomerular Filtration Rate 83 Thyroid Stimulating Hormone 3rd Gen 0.295 Salicylates Level LESS THAN 1.7 Acetaminophen Level LESS THAN 2.0 Ethyl Alcohol Level LESS THAN 3 Urine Opiates Screen POS Urine Barbiturates Screen NEG Urine Amphetamines Screen NEG Urine Benzodiazepines Screen NEG Urine Cocaine Screen NEG Urine Cannabinoids Screen NEG Urine Color YELLOW Urine Turbidity CLEAR Urine pH 5.5 Urine Specific [place] 1.019 Urine Protein TRACE Urine Glucose (UA) NEG Urine Ketones NEG Urine Occult Blood SMALL Urine Nitrite NEG Urine Bilirubin NEG Urine Urobilinogen LESS THAN 2.0 Urine Leukocyte Esterase NEG Urine RBC 45 Urine WBC 2 Urine Hyaline Casts 1 Urine Mucus FEW Microscopic Urinalysis Comment CATH-CULT NOT IND Result Diagram: 05/05/1721405/05/17214 Caprini VTE Risk Assessment Caprini VTE Risk Assessment: No/Low Risk (score <= 1) Caprini Risk Assessment Model Point Value = 1 Point Value = 2 Point Value = 3 Point Value = 5 Age 41-60 Minor surgery BMI > 25 kg/m2 Swollen legs Varicose veins or History of unexplained or recurrent spontaneous Oral contraceptives or hormone replacement Sepsis (< 1 month) Serious lung disease, including pneumonia (< 1 month) Abnormal pulmonary function Acute myocardial infarction Congestive heart failure (< 1 month) History of inflammatory bowel disease Medical patient at bed rest Age 61-74 Arthroscopic surgery Major open surgery (> 45 min) Laparoscopic surgery (> 45 min) Malignancy Confined to bed (> 72 hours) Immobilizing plaster cast Central venous access Age >= 75 History of VTE Family history of VTE Factor V Leiden Prothrombin [id number] Lupus anticoagulant Anticardiolipin antibodies Elevated serum homocysteine Heparin-induced thrombocytopenia Other congenital or acquired thrombophilia Stroke (< 1 month) Elective arthroplasty Hip, pelvis, or leg fracture Acute spinal cord injury (< 1 month) Prophylaxis Regimen Total Risk Factor Score Risk Level Prophylaxis Regimen 0-1 Low Early ambulation 2 Moderate Order ONE of the following: *Sequential Compression Device (SCD) *Heparin 5000 units SQ BID 3-4 Higher Order ONE of the following medications: *Heparin 5000 units SQ TID *Enoxaparin/Lovenox 40 mg SQ daily (WT < 150 kg, CrCl > 30 mL/min) *Enoxaparin/Lovenox 30 mg SQ daily (WT < 150 kg, CrCl > 10-29 mL/min) *Enoxaparin/Lovenox 30 mg SQ BID (WT < 150 kg, CrCl > 30 mL/min) AND/OR *Sequential Compression Device (SCD) 5 or more Highest Order ONE of the following medications: *Heparin 5000 units SQ TID (Preferred with Epidurals) *Enoxaparin/Lovenox 40 mg SQ daily (WT < 150 kg, CrCl > 30 mL/min) *Enoxaparin/Lovenox 30 mg SQ daily (WT < 150 kg, CrCl > 10-29 mL/min) *Enoxaparin/Lovenox 30 mg SQ BID (WT < 150 kg, CrCl > 30 mL/min) AND *Sequential Compression Device (SCD) Assessment and Plan Problem List: (1) Encephalopathy ICD Code: G93.40 - Encephalopathy, unspecified (2) Polypharmacy ICD Code: Z79.899 - Other [place] [facility] (current) drug therapy Status: Acute (3) Tachycardia ICD Code: R00.0 - Tachycardia, unspecified Assessment and Plan A/P: 1. Encephalopathy: acute change in mental status, agitated/fidgety, disoriented, unclear etiology. Suspected secondary to medications-received Reglan for Migraine/on Trazodone at home. Hold all medications at this time. Neuro checks q4h. CT Head w/ no acute findings, images reviewed by me. Labs essentially unremarkable. U/a negative for UTI. notes some improvement in mental status since arrival. 2. Polypharmacy: h/o chronic pain on Fentanyl/Marcaine pump, in addition to PO Dilaudid. Urine Drug Screen positive only for Opiates. S/p Activated Charcoal in ER. Monitor neuro status closely, IVF for hydration. 3. Tachycardia: HR 120-130's, sinus. Likely secondary to medication effects. No obvious infection, TSH 0.295. Place on telemetry, IVF for hydration, Ativan prn for agitation. 4. DVT Prophylaxis: SCD/Teds. 5. Social work for d/c planning as needed. 6. Labs/records/imaging reviewed by me, Case discussed at length w/ ER physician. Harmony Oates MD May 05, 2017 05:22
[2017-05-05] MEDS: levETIRAcetam 250 MG TAB PO SCH ×2 (10:15→20:52)
[2017-05-05] MEDS: GABAPENTIN 400 MG CAP PO SCH ×3 (10:15→18:00)
[2017-05-05] MEDS: SODIUM CHLORIDE 0.9% FLUSH 10 ML FLUSH IV FLUSH SCH ×2 (10:15→20:52)
[2017-05-05] MEDS: DOCUSATE SODIUM 50 MG/SENNA 8.6 MG TAB PO SCH ×2 (10:16→20:52)
--- NOTE | 2017-05-05 11:13 | HHI.PR ---
Subjective Remarks Follow-up encephalopathy. Remains confused. confirms she has taken Toradol, Reglan and Benadryl in the past. Doesn't remember patient being on Decadron before. Objective Vitals Vital Signs Date Time Temp Pulse Resp B/P (MAP) Pulse Ox O2 Delivery O2 Flow Rate FiO2 05/05/17 08:09 116 05/05/17 07:54 99.0 115 20 128/66 (86) 93 05/05/17 05:37 100 20 136/70 (92) 98 Room Air 05/05/17 02:53 123 22 130/72 (91) 98 Nasal Cannula 2.00 05/05/17 02:33 133 22 131/65 (87) 98 Nasal Cannula 05/05/17 02:25 98.0 135 22 120/66 (84) 91 I/O 05/04/17 05/04/17 05/04/17 05/05/17 05/05/17 05/05/17 07:00 15:00 23:00 07:00 15:00 23:00 Intake Total 3000.00 ml Balance 3000.00 ml Intake IV Total 3000.00 ml Result Diagram: 05/05/1721405/05/17214 Imaging Last Impressions Head CT 05/05/17225 Signed Impressions: Service Date/Time: Friday, May 05, 2017 02:41 - CONCLUSION: No acute disease. Keshav Boston MD Chest X-Ray 05/05/17210 Signed Impressions: Service Date/Time: Friday, May 05, 2017 02:15 - CONCLUSION: No acute disease. Keshav Boston MD Objective Remarks GENERAL: Middle-aged female, fidgety, answers few questions but easily distracted, hard to re-direct. at bedside. HEENT: PERRLA, EOMI. No scleral icterus or conjunctival pallor. No lid lag or facial droop. Neck supple without tenderness CARDIOVASCULAR: Regular rate and rhythm. No obvious murmurs to auscultation. No chest tenderness to palpation. RESPIRATORY: No obvious rhonchi or wheezing. Clear to auscultation. Breath sounds equal bilaterally. GASTROINTESTINAL: Abdomen soft, non-tender, nondistended. BS normal. MUSCULOSKELETAL: Extremities without clubbing, cyanosis, or edema. No obvious deformities. NEUROLOGICAL: Awake, disoriented, confused. No focal neurologic deficits. Moving both upper and lower extremities spontaneously. 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 Encephalopathy: acute change in mental status, agitated/fidgety, disoriented, unclear etiology. No fever and leukocytosis. Neck supple. Suspected secondary to medications. Hold all medications at this time. Neuro checks q4h. CT Head w/ no acute findings, images reviewed by me. Unable to brain MRI patient has a pain pump Labs essentially unremarkable. U/a negative for UTI. Patient initially resented with headache day prior to admission. Check ESR. May need lumbar puncture. Consult neuro 2. Polypharmacy: h/o chronic pain on Fentanyl/Marcaine pump, in addition to PO Dilaudid. Urine Drug Screen positive only for Opiates. S/p Activated Charcoal in ER. Monitor neuro status closely, IVF for hydration. 3. Tachycardia: HR 120-130's, sinus. Likely secondary to medication effects. No obvious infection, TSH 0.295. Place on telemetry, IVF for hydration, Ativan prn for agitation. 4. Seizure disorder. Restart Neurontin and Keppra. Seizure precautions. Obtain EEG DVT Prophylaxis: SCD/Teds. Hold chemical prophylaxis may need lumbar puncture Gordo Briggs MD May 05, 2017 11:13
--- NOTE | 2017-05-05 13:59 | EKG ---
Date Performed: 05/05/2017 Time Performed: 02:31:07 PTAGE: 56 years EKG: SINUS TACHYCARDIA BORDERLINE LEFT AXIS DEVIATION ABNORMAL RHYTHM ECG PREVIOUS TRACING : 07/22/2015 14.35 Rate has increased since prior tracing. Clinical correlatio n recommended. DOCTOR: Jim Velez Interpretating Date/Time 05/05/2017 13:59:38
[2017-05-05 15:52] LABS: FREE T3 2.4 PG/ML (2.18-3.98); FREE T4 1.3 NG/DL (0.76-1.46)
[2017-05-05 16:45] LABS: AUTOMATED NEUTROPHIL # 5.8 TH/MM3 (1.8-7.7); BASOPHIL % 0.2 % (0.0-2.0); HEMATOCRIT 30.5 % (35.0-46.0); HEMOGLOBIN 10.2 GM/DL (11.6-15.3); LYMPH % 17.4 % (9.0-44.0); LYMPHOCYTE # 1.4 TH/MM3 (1.0-4.8); MEAN CELL VOLUME 87.8 FL (80.0-100.0); MEAN CORPUSCULAR HEMOGLOBIN 29.4 PG (27.0-34.0); MEAN CORPUSCULAR HGB CONC 33.5 % (32.0-36.0); MEAN PLATELET VOLUME 6.7 FL (7.0-11.0); MONO % 8.5 % (0.0-8.0); MONOCYTE # 0.7 TH/MM3 (0-0.9); NEUT % 73.9 % (16.0-70.0); PLATELET COUNT 277 TH/MM3 (150-450); RED BLOOD COUNT 3.47 MIL/MM3 (4.00-5.30); RED CELL DISTRIBUTION WIDTH 13.9 % (11.6-17.2); WHITE BLOOD COUNT 7.8 TH/MM3 (4.0-11.0)
[2017-05-05 17:07] LABS: BICARBONATE 25.9 MEQ/L (21.0-32.0); CALCIUM 8.7 MG/DL (8.5-10.1); CREATININE 0.46 MG/DL (0.50-1.00); MAGNESIUM 1.9 MG/DL (1.5-2.5)
--- NOTE | 2017-05-05 22:04 | MG ---
cc: RODY PEACE MD Lab No: Date: 05/05/17 Age: 56 Sex: F Race: REQUESTING PHYSICIAN Dr. Briggs An EEG was obtained on this 56-year-old patient being evaluated for confusion, agitation. The patient is described as taking Ativan, Neurontin and Keppra. Awake and restless. The EEG is showing a lot of muscle and movement artifact. There appears to be underlying alpha and theta rhythms along with beta activity as well overall symmetrical. The patient is talkative, moving frequently and there is a lot of artifact. Photic stimulation was not performed. INTERPRETATION Mildly abnormal EEG because of some intermixed with slowing suggesting a mild diffuse disturbance of cerebral function. No epileptiform or lateralizing features present. The study is limited because of the excessive artifact. Rody Peace MD [facility] /7:55 PM /9:43 PM
--- NOTE | 2017-05-05 22:22 | MB ---
cc: RODY SHEETS MD DATE OF CONSULTATION 05/05/17 She is a 56-year-old seen in neurological consultation. The patient has a long history of chronic pain including back pain and migraines. Yesterday, she went to the [facility] emergency room and was treated with a cocktail for pain which apparently included a combination of Reglan, Toradol, Benadryl and Decadron. She went home. Her pain seemed to have improved. She may have taken some Dilaudid at home as well. She normally takes fentanyl through a pump and Dilaudid p.r.n. She came back to the hospital with confusion and some agitation. She has been given Ativan ever since. The extra morphine that she takes through the pump has been held today. The patient normally is able to function normally, drives and she is going to school, etc. NEUROLOGIC EXAM On exam, she was sitting on the commode. Head was down and intermittently she was able to raise the head and established eye contact. Eyes are bulgy, almost like hypothyroidism. She verbalized and speech is minimally dysarthric. She is rigid and have some contortion of movements and she is laying or falling to the right side while sitting on the commode. She was able to briefly stand up on her own, but was concerned about her falling. There is some trembling involving the right more than left sided limbs. Her reflexes were difficult to be elicited and she is status post bilateral knee surgeries. Plantar responses were flexor. LABORATORY DATA The CBC showed white count 7.8, hemoglobin 10.2, platelets 227. Sodium, potassium normal, essentially normal BUN and creatinine. Glucose 133 and a repeat on 90 for today. TSH is low. T4 is normal. IMAGING STUDIES CT brain shows no acute abnormality. ASSESSMENT This woman is now presenting with some apparent confusion, but most prominently now she has a movement disorder, probably related to her polypharmacy yesterday. At this point, I discussed with the he could give her an extra dose of the morphine through the pump as he has the control. Usually she takes about four to six of this extra dose a day and she never had problems like these. Continue the Ativan. Avoid any additional Reglan, Toradol and other cocktail type of medications such medication might have been the cause for all of this. No nausea medications to be included. We will monitor her neurological course. An MRI brain is not feasible because of her fentanyl/morphine pump. I will follow the neurological course. Thank you for asking us to assist in her care. MD JANUSZ Vazquez/ /6:43 PM /9:54 PM
[2017-05-06 00:49] VITALS: BP 136/81; PULSE 78; RESP 16; TEMP 98.5; O2SAT 95
[2017-05-06] MEDS: SODIUM CHLOR 0.9% 1000 ML INJ 1,000 ML IV SCH (00:50)
[2017-05-06 00:59] VITALS: PULSE 80
[2017-05-06] MEDS: LORazepam 2 MG/ML VIAL IV PUSH PRN (02:39)
[2017-05-06] MEDS ORDERED: LORazepam 2 MG/ML VIAL IM ONE ×2 (04:30→09:00)
[2017-05-06 08:04] VITALS: BP 164/83; PULSE 78; RESP 18; TEMP 98.2; O2SAT 98
[2017-05-06] MEDS: GABAPENTIN 400 MG CAP PO SCH (09:00)
[2017-05-06] MEDS: levETIRAcetam 250 MG TAB PO SCH (09:00)
[2017-05-06] MEDS: DOCUSATE SODIUM 50 MG/SENNA 8.6 MG TAB PO SCH (09:00)
[2017-05-06] MEDS: SODIUM CHLORIDE 0.9% FLUSH 10 ML FLUSH IV FLUSH SCH (09:00)
--- NOTE | 2017-05-06 10:43 | HHI.PR ---
Addendum To [facility] Progress Not Reason for addendum: Additonal documentation Addendum Remarks Sharron RN reported patient eloped from her room this morning. Despite attempts by nursing staff and security, unable to locate the patient on the campus. Police was contacted and soon found the patient walking home. RN discussed with patient's . Patient and do not want the patient to come back to the hospital despite recommendations to return. reported patient is better and she just wants to go home. Dr. Meléndezo aware. Hazel Ugalde PA-C May 06, 2017 10:43 am
--- NOTE | 2017-05-06 10:50 | HHI.DS ---
Discharge Summary Admission Date May 05, 2017 at 04:51 Discharge Date: May 06, 2017 Admitting Diagnosis Polypharmacy; AMS (1) Encephalopathy ICD Code: G93.40 - Encephalopathy, unspecified Diagnosis: Principal (2) Polypharmacy ICD Code: Z79.899 - Other buttermaker continuous churn (current) drug therapy Diagnosis: Principal Status: Acute (3) Tachycardia ICD Code: R00.0 - Tachycardia, unspecified Diagnosis: Principal Procedures none Brief History - From Admission This is a 56-year-old female with a PMH of Anxiety, Migraine, Chronic Back Pain and GERD who was brought to the ER by EMS for AMS. at bedside providing history, states she was seen at [facility] earlier today for c/o Migraine, was given Toradol, Reglan, Benadryl, Decadron and IVF then d/c'd home. Per , pt took home dose of Dilaudid PO, states he put her in bed and went to work, when he returned he found pt to be significantly agitated, not making sense. No h/o similar symptoms. On arrival, BP 120/66, HR 135, O2 sat 91% on RA, Afebrile. CBC unremarkable. Chemistry essentially unremarkable except for GFR 83. TSH 0.295. UA negative. Urine Drug Screen positive for opiates. Negative for alcohol. CT Abdomen no acute findings. CXR negative. S/p IVF and Activated Charcoal in ER w/ some improvement. Pt more awake/alert, however remains agitated and tachycardic. CBC/BMP: 05/05/17 1610 05/05/17 1610 Significant Findings Laboratory Tests Test 05/05/17 02:15 05/05/17 03:47 05/05/17 04:00 05/05/17 15:45 Mean Platelet Volume 6.9 FL (7.0-11.0) Neutrophils (%) (Auto) 85.7 % (16.0-70.0) Lymphocytes (%) (Auto) 7.3 % (9.0-44.0) Lymphocytes # (Auto) 0.6 TH/MM3 (1.0-4.8) Random Glucose 133 MG/DL (74-106) Total Protein 8.4 GM/DL (6.4-8.2) Chloride Level 108 MEQ/L (98-107) Estimat Glomerular Filtration Rate 83 ML/MIN (>89) Thyroid Stimulating Hormone 3rd Gen 0.295 uIU/ML (0.358-3.740) Salicylates Level LESS THAN 1.7 MG/DL Acetaminophen Level LESS THAN 2.0 MCG/ML Urine Opiates Screen POS (NEG) Urine Occult Blood SMALL (NEG) Urine RBC 45 /hpf (0-3) Urine Mucus FEW /lpf (OCC) Blood Gas Hemoglobin 10.3 G/DL (12.0-16.0) Test 05/05/17 16:10 05/05/17 22:59 Red Blood Count 3.47 MIL/MM3 (4.00-5.30) Hemoglobin 10.2 GM/DL (11.6-15.3) Hematocrit 30.5 % (35.0-46.0) Mean Platelet Volume 6.7 FL (7.0-11.0) Neutrophils (%) (Auto) 73.9 % (16.0-70.0) Monocytes (%) (Auto) 8.5 % (0.0-8.0) Erythrocyte Sedimentation Rate 32 mm/hr (0-30) Creatinine 0.46 MG/DL (0.50-1.00) Chloride Level 110 MEQ/L (98-107) Imaging Last Impressions Head CT 05/05/17225 Signed Impressions: Service Date/Time: Friday, May 05, 2017 02:41 - CONCLUSION: No acute disease. Keshav Boston MD Chest X-Ray 05/05/17210 Signed Impressions: Service Date/Time: Friday, May 05, 2017 02:15 - CONCLUSION: No acute disease. Keshav Boston MD PE at Discharge GENERAL: Middle-aged female, fidgety, answers few questions but easily distracted, hard to re-direct. at bedside. HEENT: PERRLA, EOMI. No scleral icterus or conjunctival pallor. No lid lag or facial droop. Neck supple without tenderness CARDIOVASCULAR: Regular rate and rhythm. No obvious murmurs to auscultation. No chest tenderness to palpation. RESPIRATORY: No obvious rhonchi or wheezing. Clear to auscultation. Breath sounds equal bilaterally. GASTROINTESTINAL: Abdomen soft, non-tender, nondistended. BS normal. MUSCULOSKELETAL: Extremities without clubbing, cyanosis, or edema. No obvious deformities. NEUROLOGICAL: Awake, disoriented, confused. No focal neurologic deficits. Moving both upper and lower extremities spontaneously. Hospital Course 1. Encephalopathy: acute change in mental status, agitated/fidgety, disoriented, likely toxic encephalopathy. No fever and leukocytosis. Neck supple. Suspected secondary to medications. Hold all medications at this time. Neuro checks q4h. CT Head w/ no acute findings, images reviewed by me. Unable to obtain brain MRI patient has a pain pump Labs essentially unremarkable. U/a negative for UTI. Patient initially presented with headache day prior to admission. ESR 32. May need lumbar puncture. Consulted neuro 2. Polypharmacy: h/o chronic pain on Fentanyl/Marcaine pump, in addition to PO Dilaudid. Urine Drug Screen positive only for Opiates. S/p Activated Charcoal in ER. Monitor neuro status closely, IVF for hydration. 3. Tachycardia: HR 120-130's, sinus. Likely secondary to medication effects. No obvious infection, TSH 0.295. Place on telemetry, IVF for hydration, Ativan prn for agitation. 4. Seizure disorder. Restarted Neurontin and Keppra. Seizure precautions. EEG without seizure DVT Prophylaxis: SCD/Teds. Hold chemical prophylaxis may need lumbar puncture Discussed with RN, patient with improved mental status wanting to go home. She reportedly eloped and police found her on the street on her way home. RN was able to contact who did not want to bring her back to the hospital Pt Condition on Discharge: Guarded Discharge Disposition: Discharge Home (pt eloped) Discharge Time: <= 30 minutes Gordo Briggs MD May 06, 2017 10:50
--- NOTE | 2017-05-06 12:18 | EKG ---
Date Performed: 05/05/2017 Time Performed: 15:54:26 PTAGE: 56 years EKG: SINUS TACHYCARDIA POSSIBLE LEFT ATRIAL ENLARGEMENT BORDERLINE LEFT AXIS DEVIATION ABNORMAL RHYTHM ECG PREVIOUS TRACING : 05/05/2017 02.31 Since the prior tracing, there has been no significant fox DOCTOR: Jmi Velez Interpretating Date/Time 05/06/2017 12:17:27
== END 2017-05-06 11:22 | disposition home or self-care (01) ==
LOC: NEPC 01:59 → NEDA 04:51 → NEPHCDU 06:50
PROVIDERS: ADMIT Internal Medicine; ATTEND Internal Medicine
DX: G93.40 Encephalopathy, unspecified (principal); G40.909 Epilepsy, unspecified, not intractable, without status epilepticus; G25.9 Extrapyramidal and movement disorder, unspecified; D57.1 Sickle-cell disease without crisis; E78.00 Pure hypercholesterolemia, unspecified; H40.9 Unspecified glaucoma; K21.9 Gastro-esophageal reflux disease without esophagitis; Z79.891 Long term (current) use of opiate analgesic; Z79.899 Other long term (current) drug therapy; Z90.710 Acquired absence of both cervix and uterus; Z96.643 Presence of artificial hip joint, bilateral; Z96.653 Presence of artificial knee joint, bilateral
CPT/HCPCS: 36600; 70450; 71045; 80053; 80307; 81001; 82140; 82550; 82805; 83605; 83735; 84439; 84443; 84481; 85025; 85652; 87040; 93005; 95819; 96360; 96361; 96372; 96374; 96376; 99291; G0378; J2060; J7030; 80048